=== PATIENT | female | born 1975 | race African-American/Black ===

== ENCOUNTER 2017-06-05 17:19 | Observation (INO) | payer SELFPAY ==
[~2017-06-05] VITALS: Ht 172.7 cm; Wt 109.0 kg
[~2017-06-05 17:19] MED LIST: ASPI81TA81; CORE25TA PO; FERR325T PO; HYDR-3533 PO; LISI10TA3 PO; POTA-243 PO; TORS20TA PO
[2017-06-05 17:35] VITALS: BP 121/76; PULSE 81; PULSE 88; RESP 20; TEMP 98; O2SAT 100
--- NOTE | 2017-06-05 18:11 | PD ---
HPI Chief Complaint: General Weakness Time Seen by Provider: 18:10 Travel History International Travel<30 days: No Contact w/Intl Traveler<30days: No Traveled to known affect area: No History of Present Illness HPI 42-year-old female presents to the emergency department via EMS for evaluation of epigastric and left-sided chest pain that started just prior to arrival. She states that she was seen on Wednesday at [facility] after her defibrillator went off. She states is the first time it has never fired. Patient states that she was discharged on . She states that after discharge, this epigastric and left-sided chest pain started. She states this mainly occurs after she eats. Today, she ate and then went to [employer] to chart picker some medications and a few things. She states that walking a [employer], she felt lightheaded and dizzy. She states the epigastric and left-sided chest pain started. Patient currently rates the pain 8/10. She points history defibrillator/pacemaker, ejection fraction 10%, cardiomyopathy, congestive heart failure. Patient's lieutenant ballistics is Dr. David. [facility] Past Medical History Hx Anticoagulant Therapy: Yes Arthritis: No Asthma: Yes Autoimmune Disease: No Blood Disorders: No Anxiety: Yes Depression: No Heart Rhythm Problems: No Cancer: No Cardiac Catheterization: Yes Cardiomyopathy: Yes Cardiovascular Problems: Yes High Cholesterol: No Chemotherapy: No Chest Pain: Yes Congestive Heart Failure: Yes COPD: No Cerebrovascular Accident: No Coronary Artery Disease: Yes Diabetes: No Diminished Hearing: No Endocrine: No Gastrointestinal Disorders: Yes (HIATAL HERNIA) GERD: No Glaucoma: No Genitourinary: No Headaches: No Hepatitis: No Hiatal Hernia: No Hypertension: Yes Immune Disorder: No Kidney Stones: No Musculoskeletal: No Neurologic: No Psychiatric: No Reproductive: No Respiratory: Yes (HISTORY OF PE) Immunizations Current: Yes Migraines: No Myocardial Infarction: No Radiation Therapy: No Renal Failure: No Seizures: No Sickle Cell Disease: No Sleep Apnea: No Thyroid Disease: No Ulcer: No Tetanus Vaccination: Unknown Influenza Vaccination: Yes PNEUMOCCOCAL Vaccine (Year): 2 ?: Not LMP: LAST MONTH : 2 Para: 1 Miscarriage: 1 : 0 Past Surgical History Abdominal Surgery: Yes (EXPLORATORY LAPAROSCOPY) AICD: Yes (BIOTRONIC) Appendectomy: No Arteriovenous Shunt: No Cardiac Surgery: Yes Cholecystectomy: No Coronary Artery Bypass Graft: No Ear Surgery: No Endocrine Surgery: No Eye Surgery: No Genitourinary Surgery: No Gynecologic Surgery: No Insulin Pump: No Joint Replacement: No Oral Surgery: No Pacemaker: Yes Thoracic Surgery: No Other Surgery: No Social History Alcohol Use: No Tobacco Use: No Substance Use: No Allergies-Medications (Allergen,Severity, Reaction): Coded Allergies: Sulfa (Verified Allergy, Severe, SHORTNESS OF BREATH, 06/05/17) Reported Meds & Prescriptions Reported Meds & Active Scripts Active Lortab (Hydrocodone-Acetaminophen) 5-325 Mg Tab 1 Tab PO Q6H PRN Reported Torsemide 20 Mg Tab 20 Mg PO BID Lisinopril 10 Mg Tab 10 Mg PO DAILY Klor-Con 10 (Potassium Chloride) 10 Meq Tab 10 Meq PO BID Coreg (Carvedilol) 25 Mg Tab 25 Mg PO BID Aspir-81 (Aspirin) 81 Mg Tabdr Review of Systems Except as stated in HPI: all other systems reviewed are Neg Physical Exam Narrative GENERAL: Well-nourished, well-developed female patient, afebrile. SKIN: Focused skin assessment warm/dry. HEAD: Normocephalic. Atraumatic. EYES: No scleral icterus. No injection or drainage. NECK: Supple, trachea midline. No JVD or lymphadenopathy. CARDIOVASCULAR: Regular rate and rhythm without murmurs, gallops, or rubs. RESPIRATORY: Breath sounds equal bilaterally. No accessory muscle use. Lungs sounds are clear to auscultation. GASTROINTESTINAL: Abdomen soft and nondistended. Patient has epigastric and right upper quadrant tenderness to palpation. MUSCULOSKELETAL: No cyanosis, or edema. BACK: Nontender without obvious deformity. No CVA tenderness. Data Data Last Documented VS Vital Signs Date Time Temp Pulse Resp B/P Pulse Ox O2 Delivery O2 Flow Rate FiO2 06/05/17 19:55 74 18 123/85 99 Room Air 06/05/17 18:11 2 06/05/17 17:35 98.0 Orders Electrocardiogram (06/05/17 ) B-Type Natriuretic Peptide (06/05/17 18:04) Ckmb (Isoenzyme) Profile (06/05/17 18:04) Complete Blood Count With Diff (06/05/17 18:04) Comprehensive Metabolic Panel (06/05/17 18:04) Magnesium (Mg) (06/05/17 18:04) Prothrombin Time / Inr (Pt) (06/05/17 18:04) Act Partial Throm Time (Ptt) (06/05/17 18:04) Troponin I (06/05/17 18:04) Lipase (06/05/17 18:04) Chest, Single Ap (06/05/17 18:04) Ecg Monitoring (06/05/17 18:04) Bilateral Bp Monitoring (06/05/17 18:04) Iv Access Insert/Monitor (06/05/17 18:04) Oximetry (06/05/17 18:04) Oxygen Administration (06/05/17 18:04) Aspirin Chew (Aspirin Chew) (06/05/17 18:15) Sodium Chloride 0.9% Flush (Ns Flush) (06/05/17 18:15) Us Abdomen Gallbladder (06/05/17 ) Ondansetron Inj (Zofran Inj) (06/05/17 18:15) Admit Order (Ed Use Only) (06/05/17 20:31) Labs Laboratory Tests Test 06/05/17 17:50 White Blood Count 5.8 TH/MM3 Red Blood Count 3.76 MIL/MM3 Hemoglobin 9.1 GM/DL Hematocrit 28.4 % Mean Corpuscular Volume 75.6 FL Mean Corpuscular Hemoglobin 24.2 PG Mean Corpuscular Hemoglobin 32.0 % Concent Red Cell Distribution Width 16.0 % Platelet Count 252 TH/MM3 Mean Platelet Volume 8.6 FL Neutrophils (%) (Auto) 55.3 % Lymphocytes (%) (Auto) 32.5 % Monocytes (%) (Auto) 8.9 % Eosinophils (%) (Auto) 1.9 % Basophils (%) (Auto) 1.4 % Neutrophils # (Auto) 3.2 TH/MM3 Lymphocytes # (Auto) 1.9 TH/MM3 Monocytes # (Auto) 0.5 TH/MM3 Eosinophils # (Auto) 0.1 TH/MM3 Basophils # (Auto) 0.1 TH/MM3 CBC Comment DIFF FINAL Differential Comment Prothrombin Time 11.4 SEC Prothromb Time International 1.0 RATIO Ratio Activated Partial 24.7 SEC Thromboplast Time Sodium Level 135 MEQ/L Potassium Level 3.9 MEQ/L Chloride Level 102 MEQ/L Carbon Dioxide Level 27.9 MEQ/L Anion Gap 5 MEQ/L Blood Urea Nitrogen 12 MG/DL Creatinine 0.84 MG/DL Estimat Glomerular Filtration 89 ML/MIN Rate Random Glucose 86 MG/DL Calcium Level 9.1 MG/DL Magnesium Level 2.1 MG/DL Total Bilirubin 0.5 MG/DL Aspartate Amino Transf 16 U/L (AST/SGOT) Alanine Aminotransferase 20 U/L (ALT/SGPT) Alkaline Phosphatase 82 U/L Total Creatine Kinase 99 U/L Troponin I LESS THAN 0.02 NG/ML B-Type Natriuretic Peptide 557 PG/ML Total Protein 7.3 GM/DL Albumin 3.3 GM/DL Lipase 216 U/L MDM Medical Decision Making Medical Screen Exam Complete: Yes Emergency Medical Condition: Yes Medical Record Reviewed: Yes Interpretation(s) Last Impressions Chest X-Ray 06/05/17 1804 Signed Impressions: Service Date/Time: Wednesday, June 05, 2017 18:07 - CONCLUSION: Stable chest. Cardiomegaly. Tobias Medina MD Gall Bladder Ultrasound 06/05/17 0000 Signed Impressions: Service Date/Time: Wednesday, June 05, 2017 18:28 - CONCLUSION: 1. Gallbladder wall thickening without cholelithiasis. 2. Enlarged liver. Tobias Medina MD Differential Diagnosis ACS versus CHF exacerbation versus pancreatitis versus cholecystitis Narrative Course 42-year-old female presents to the emergency department for evaluation of epigastric, left chest pain that has been occurring after eating since when she was discharged for [facility] after her defibrillator went off. EKG shows sinus rhythm, interventricular conduction delay, Heart rate 83. CBC, CMP, lipase, magnesium, CK, troponin, PTT, PTT/INR chest x-ray, ultrasound of right upper quadrant ordered and pending. Patient is given aspirin 162 mg by mouth, Zofran 4 mg IV. CBC shows hemoglobin 9.1, had atraumatic 28.4. CMP shows no acute abnormality. Lipase is 216. Magnesium is 2.1. CK is 99. Troponin is less than 0.02. BNP is 557. Coags are unremarkable. Chest x-ray shows stable chest, cardiomegaly. RUQ US shows gallbladder wall thickening without cholelithiasis; enlarged liver. I discussed the case with my attending physician, Dr. Huff. She recommends 23 hour observation. I spoke to Dr. Kumari, who would like the defibrillator to be interrogated. I spoke with Hermann from [employer], who offered to come in tonight or tomorrow morning for interrogation. Per Dr. Kumari, he can come in the morning for interrogation. Diagnosis Primary Impression: Chest pain, atypical Additional Impression: Abdominal pain Qualified Code: R10.13 - Epigastric pain Admitting Information Admitting Physician Requests: Observation Steph Leon Jun 05, 2017 18:10
[2017-06-05] MEDS ORDERED: SODIUM CHLORIDE 0.9% FLUSH 10 ML FLUSH IVF PRN (18:15)
[2017-06-05] MEDS ORDERED: ONDANSETRON HCL 4 MG/2 ML VIAL IV PUSH ONE (18:15)
[2017-06-05] MEDS ORDERED: ASPIRIN 81 MG CHEW TAB PO ONE (18:15)
--- NOTE | 2017-06-05 18:36 | RADRPT ---
EXAM DATE/TIME: 06/05/2017 18:07 [facility] COMPARISON: CHEST SINGLE AP, November 07, 2016, 2:37. INDICATIONS : Chest pain. MEDICAL HISTORY : Congestive hearrt failure. Hernia, hiatal. Cardiovascular diseasePulmonary embolism SURGICAL HISTORY : Pacemaker. Exploratory laparotomy. ENCOUNTER: Initial ACUITY: 1 day PAIN SCORE: 8/10 LOCATION: Bilateral chest FINDINGS: A single view of the chest demonstrates the lungs to be symmetrically aerated without evidence of mas s, infiltrate or effusion. Cardiomegaly left-sided pacemaker with single intact lead. The cardiomedi astinal contours are unremarkable. Osseous structures are intact. CONCLUSION: Stable chest. Cardiomegaly. Tobias Medina MD on June 05, 2017 at 18:33 Board Certified Radiologist. This report was verified electronically.
[2017-06-05 18:51] LABS: AUTOMATED NEUTROPHIL # 3.2 TH/MM3 (1.8-7.7); BASOPHIL # 0.1 TH/MM3 (0-0.2); BASOPHIL % 1.4 % (0.0-2.0); EOSINOPHIL # 0.1 TH/MM3 (0-0.4); EOSINOPHIL % 1.9 % (0.0-4.0); HEMATOCRIT 28.4 % (35.0-46.0); HEMO FLAGS DIFF FINAL; LYMPH % 32.5 % (9.0-44.0); LYMPHOCYTE # 1.9 TH/MM3 (1.0-4.8); MEAN CELL VOLUME 75.6 FL (80.0-100.0); MEAN CORPUSCULAR HEMOGLOBIN 24.2 PG (27.0-34.0); MONO % 8.9 % (0.0-8.0); NEUT % 55.3 % (16.0-70.0); PLATELET COUNT 252 TH/MM3 (150-450); RED BLOOD COUNT 3.76 MIL/MM3 (4.00-5.30); WHITE BLOOD COUNT 5.8 TH/MM3 (4.0-11.0)
--- NOTE | 2017-06-05 18:56 | RADRPT ---
EXAM DATE/TIME: 06/05/2017 18:28 [facility] COMPARISON: No previous studies available for comparison. INDICATIONS : Right upper quadrant pain. MEDICAL HISTORY : Congestive heart failure. Hypertension. Cardiomyopathy. Coronary artery disease. Anticoagulant ther apy. Chest pain. Pulmonary embolism. Asthma. Hiatal hernia. SURGICAL HISTORY : Cardiac catheterization. Pacemaker. Internal defibrillator. Exploratory laparoscopy. ENCOUNTER: Initial ACUITY: 2 days PAIN SCORE: 7/10 LOCATION: Right upper quadrant MEASUREMENTS: LIVER: 23.8 cm length COMMON DUCT: 3 mm RIGHT KIDNEY: 12.1 x 5.4 x 4.1 cm FINDINGS: LIVER: Normal echotexture without focal lesion or ductal dilatation. Hepatopedal flow. COMMON DUCT: No intraluminal mass or stone visualized. GALLBLADDER: Contains no stones, demonstrates wall thickening at 7 mm without pericholecystic fluid. PANCREAS: The visualized portions are within normal limits. RIGHT KIDNEY: No evidence of hydronephrosis, stone, or mass. CONCLUSION: 1. Gallbladder wall thickening without cholelithiasis. 2. Enlarged liver. Tobias Medina MD on June 05, 2017 at 18:53 Board Certified Radiologist. This report was verified electronically.
[2017-06-05 19:05] LABS: APTT (PATIENT) 24.7 SEC (24.3-30.1); PROTHROMBIN TIME - PATIENT 11.4 SEC (9.8-11.6)
[2017-06-05 19:27] LABS: ANION GAP 5 MEQ/L (5-15); AST (GOT) 16 U/L (15-37); BICARBONATE 27.9 MEQ/L (21.0-32.0); BLOOD UREA NITROGEN 12 MG/DL (7-18); CHLORIDE 102 MEQ/L (98-107); GLOMERULAR FILTRATION RATE 89 ML/MIN (>89); MAGNESIUM 2.1 MG/DL (1.5-2.5); POTASSIUM 3.9 MEQ/L (3.5-5.1); SODIUM (NA) 135 MEQ/L (136-145)
[2017-06-05 19:28] LABS: ALT (GPT) 20 U/L (10-53)
[2017-06-05 19:32] LABS: ALKALINE PHOSPHATASE 82 U/L (45-117); TOTAL BILIRUBIN ADULT 0.5 MG/DL (0.2-1.0)
[2017-06-05 19:33] LABS: CREATINE KINASE 99 U/L (26-192)
[2017-06-05 19:55] VITALS: BP 123/85; PULSE 74; RESP 18; O2SAT 99
[2017-06-05] MEDS ORDERED: LACTULOSE SYRUP 20 GM/30 ML CUP PO PRN (20:30)
[2017-06-05] MEDS ORDERED: ACETAMINOPHEN/HYDROcodone 325 MG/5 MG TAB PO PRN (20:30)
[2017-06-05] MEDS ORDERED: BISACODYL 10 MG SUPP RECTAL PRN (20:30)
[2017-06-05] MEDS ORDERED: SODIUM CHLORIDE 0.9% FLUSH 10 ML FLUSH IV FLUSH PRN (20:30)
[2017-06-05] MEDS ORDERED: ACETAMINOPHEN 325 MG TAB PO PRN (20:30)
[2017-06-05] MEDS ORDERED: MAGNESIUM HYDROXIDE SUSP 30 ML CUP PO PRN (20:30)
[2017-06-05] MEDS ORDERED: ONDANSETRON HCL 4 MG/2 ML VIAL IVP PRN (20:30)
[2017-06-05] MEDS ORDERED: NITROGLYCERIN 2% OINT 1 GM PACKET TOPICAL PRN (20:30)
[2017-06-05] MEDS ORDERED: SENNOSIDES 8.6 MG TAB PO PRN (20:30)
[2017-06-05] MEDS ORDERED: MORPHINE SULFATE 4 MG/ML INJ IV PRN (20:30)
--- NOTE | 2017-06-05 20:34 | HHI.HP ---
[facility] Primary Care Physician Admission Diagnosis chest pain, abdominal pain Diagnoses: (1) Chest pain Diagnosis: Principal (2) CHF (congestive heart failure) Diagnosis: Principal (3) Thickening of wall of gallbladder Diagnosis: Principal Travel History International Travel<30 Days: No Contact w/Intl Traveler <30 Da: No Traveled to Known Affected Are: No History of Present Illness This is a 42-year-old female with a PMH of HTN, Nonischemic Cardiomyopathy ( Echo08/28/16 w/ EF 15%), s/p AICD ([employer] 2015) and Anxiety who presented to the ER w/ complaints of chest pain starting earlier today. States she's had chest/epigastric pain after eating w/ associated nausea, no vomiting. Recent admit to [facility] for similar symptoms, states she had something to eat, felt sharp chest/epigastric pain and had subsequent AICD firing. Admitted 05/31- 06/02/17, s/p AICD Interrogation and found to have 5 episodes of SVT, dc'd home w / instructions to follow up w/ her Cnc Operator Programmer, Dr. David, has upcoming appt on Wednesday. Today w/ similar symptoms however no AICD firing. On arrival , BP 121/76, HR 81, O2 sat 100% on RA, Afebrile. CBC chemistry unremarkable. Troponin negative. BNP 557. INR 1.0. CXR with no acute findings. Gallbladder US with wall thickening, no cholelithiasis, enlarged liver. Review of Systems Except as stated in HPI: all other systems reviewed are Neg ROS: 14 point review of systems otherwise negative. Past Family Social History Past Medical History PMH: HTN, Nonischemic Cardiomyopathy (Echo08/28/16 w/ EF 15%), s/p AICD ( [employer] 2015) and Anxiety Past Surgical History PAST SURGICAL HISTORY: AICD, Ex Lap Allergies: Coded Allergies: Sulfa (Verified Allergy, Severe, SHORTNESS OF BREATH, 06/05/17) Family History PAST FAMILY HISTORY: Reviewed. No h/o DM or CAD Social History PAST SOCIAL HISTORY: Negative for alcohol, tobacco or drugs. Physical Exam Vital Signs Vital Signs Date Time Temp Pulse Resp B/P Pulse Ox O2 Delivery O2 Flow Rate FiO2 06/05/17 19:55 74 18 123/85 99 Room Air 06/05/17 18:11 98 Nasal Cannula 2 06/05/17 17:46 100 Room Air 06/05/17 17:35 88 121/76 06/05/17 17:35 98.0 81 20 121/76 100 Room Air Physical Exam PE: GENERAL: Very pleasant middle-aged black female in no acute distress. HEENT: PERRLA, EOMI. No scleral icterus or conjunctival pallor. No lid lag or facial droop. CARDIOVASCULAR: Regular rate and rhythm. No obvious murmurs to auscultation. No chest tenderness to palpation. RESPIRATORY: No obvious rhonchi or wheezing. Clear to auscultation. Breath sounds equal bilaterally. GASTROINTESTINAL: Abdomen soft, epigastric/RUQ tenderness to palpation, nondistended. BS normal. MUSCULOSKELETAL: Extremities without clubbing, cyanosis, or edema. No obvious deformities. NEUROLOGICAL: Awake, alert and oriented x4. No focal neurologic deficits. Moving both upper and lower extremities spontaneously. Laboratory Laboratory Tests Test 06/05/17 17:50 White Blood Count 5.8 Red Blood Count 3.76 Hemoglobin 9.1 Hematocrit 28.4 Mean Corpuscular Volume 75.6 Mean Corpuscular Hemoglobin 24.2 Mean Corpuscular Hemoglobin 32.0 Concent Red Cell Distribution Width 16.0 Platelet Count 252 Mean Platelet Volume 8.6 Neutrophils (%) (Auto) 55.3 Lymphocytes (%) (Auto) 32.5 Monocytes (%) (Auto) 8.9 Eosinophils (%) (Auto) 1.9 Basophils (%) (Auto) 1.4 Neutrophils # (Auto) 3.2 Lymphocytes # (Auto) 1.9 Monocytes # (Auto) 0.5 Eosinophils # (Auto) 0.1 Basophils # (Auto) 0.1 CBC Comment DIFF FINAL Differential Comment Prothrombin Time 11.4 Prothromb Time International 1.0 Ratio Activated Partial 24.7 Thromboplast Time Sodium Level 135 Potassium Level 3.9 Chloride Level 102 Carbon Dioxide Level 27.9 Anion Gap 5 Blood Urea Nitrogen 12 Creatinine 0.84 Estimat Glomerular Filtration 89 Rate Random Glucose 86 Calcium Level 9.1 Magnesium Level 2.1 Total Bilirubin 0.5 Aspartate Amino Transf 16 (AST/SGOT) Alanine Aminotransferase 20 (ALT/SGPT) Alkaline Phosphatase 82 Total Creatine Kinase 99 Troponin I LESS THAN 0.02 B-Type Natriuretic Peptide 557 Total Protein 7.3 Albumin 3.3 Lipase 216 Result Diagram: 06/05/17174906/05/171749 Assessment and Plan Problem List: (1) Chest pain ICD Code: R07.9 Status: Acute (2) Thickening of wall of gallbladder ICD Code: K82.8 Status: Acute (3) CHF (congestive heart failure) ICD Code: I50.9 Status: Acute Assessment and Plan A/P: 1. Chest Pain: c/o ongoing chest pain after eating, unlikely cardiac, however pt w/ extensive cardiac history. Initial trop 0.02, EKG w/ no acute changes. CXR w/ no acute findings. Currently chest pain free, notes symptoms only after meals. Protonix IV, analgesics/antiemetics, check serial cardiac enzymes, resume home medications. 2. Gallbladder Wall Thickening: likely early cholecystitis, c/o chest/ epigastric/RUQ pain following meals w/ associated nausea, no vomiting. Gallbladder US w/ gallbladder wall thickening, no cholelithiasis, images reviewed by me. Continue with analgesics/antiemetics. Consult Gen Sx for further eval, possible elective cholecystectomy. 3. CHF: Chronic. h/o Non-Ischemic CM, Echo 08/30/16 w/ EF 15%, s/p AICD ( [employer]), recent admit to [facility] after AICD firing, found to have 5 episodes of SVT. Follows w/ Dr. David as outpatient, upcoming appt on Wednesday, will consult for further recommendations. Interrogate AICD. Resume home medications. 4. DVT Prophylaxis: SCD/Teds. 5. Social work for d/c planning as needed. 6. Case discussed w/ ER physician at length. Anastacia Kumari MD Jun 05, 2017 20:34
[2017-06-05] MEDS: CARVEDILOL 12.5 MG TAB PO SCH (21:00)
[2017-06-05 22:21] VITALS: BP 115/68; PULSE 68; RESP 18; TEMP 98.4; O2SAT 100
[2017-06-05 22:34] VITALS: PULSE 73
[2017-06-05] MEDS: SODIUM CHLORIDE 0.9% FLUSH 10 ML FLUSH IV FLUSH SCH (22:49)
[2017-06-05] MEDS: SODIUM CHLOR 0.9% 1000 ML INJ 1,000 ML IV SCH (22:49)
[2017-06-05] MEDS: TORSEMIDE 20 MG TAB PO SCH (22:51)
[2017-06-05] MEDS: DOCUSATE SODIUM 50 MG/SENNA 8.6 MG TAB PO SCH (22:51)
[2017-06-05] MEDS: PANTOPRAZOLE SODIUM 40 MG VIAL IV PUSH SCH (22:51)
[2017-06-06] VITALS (8 sets, daily range): BP systolic 112–123; BP diastolic 60–78; PULSE 64–108; RESP 14–18; TEMP 97.5–98.4; O2SAT 96–100
[2017-06-06 05:28] LABS: AUTOMATED NEUTROPHIL # 3.1 TH/MM3 (1.8-7.7); BASOPHIL % 0.7 % (0.0-2.0); EOSINOPHIL # 0.1 TH/MM3 (0-0.4); EOSINOPHIL % 2.6 % (0.0-4.0); HEMATOCRIT 28.9 % (35.0-46.0); HEMO FLAGS DIFF FINAL; LYMPH % 32.1 % (9.0-44.0); LYMPHOCYTE # 1.8 TH/MM3 (1.0-4.8); MEAN CELL VOLUME 74.8 FL (80.0-100.0); MEAN CORPUSCULAR HEMOGLOBIN 23.7 PG (27.0-34.0); MEAN CORPUSCULAR HGB CONC 31.7 % (32.0-36.0); MONO % 10.7 % (0.0-8.0); NEUT % 53.9 % (16.0-70.0); PLATELET COUNT 239 TH/MM3 (150-450); RED BLOOD COUNT 3.86 MIL/MM3 (4.00-5.30); WHITE BLOOD COUNT 5.7 TH/MM3 (4.0-11.0)
[2017-06-06 05:53] LABS: ALT (GPT) 18 U/L (10-53); ANION GAP 8 MEQ/L (5-15); AST (GOT) 11 U/L (15-37); BICARBONATE 27.3 MEQ/L (21.0-32.0); BLOOD UREA NITROGEN 12 MG/DL (7-18); CHLORIDE 104 MEQ/L (98-107); GLOMERULAR FILTRATION RATE 81 ML/MIN (>89); POTASSIUM 3.7 MEQ/L (3.5-5.1); SODIUM (NA) 139 MEQ/L (136-145)
[2017-06-06 05:57] LABS: ALKALINE PHOSPHATASE 83 U/L (45-117); TOTAL BILIRUBIN ADULT 0.5 MG/DL (0.2-1.0)
[2017-06-06] MEDS: SODIUM CHLOR 0.9% 1000 ML INJ 1,000 ML IV SCH ×2 (06:29→08:48)
[2017-06-06] MEDS: TORSEMIDE 20 MG TAB PO SCH (08:46)
[2017-06-06] MEDS: CARVEDILOL 12.5 MG TAB PO SCH (08:46)
[2017-06-06] MEDS: PANTOPRAZOLE SODIUM 40 MG VIAL IV PUSH SCH (08:46)
[2017-06-06] MEDS: DOCUSATE SODIUM 50 MG/SENNA 8.6 MG TAB PO SCH (08:48)
[2017-06-06] MEDS: SODIUM CHLORIDE 0.9% FLUSH 10 ML FLUSH IV FLUSH SCH (08:48)
[2017-06-06] MEDS ORDERED: LISINOPRIL 10 MG TAB PO SCH (09:00)
[2017-06-06] MEDS ORDERED: ASPIRIN EC 81 MG TABEC PO SCH (09:00)
--- NOTE | 2017-06-06 09:02 | MB ---
cc: SHREE DOMINGO MD DATE OF CONSULTATION: 06/06/2017 REASON FOR CONSULTATION: Chest pain HISTORY OF PRESENT ILLNESS: Ms. Johnston is a 42 year-old patient of my partner, Dr. David. She has a history of nonischemic cardiomyopathy by catheterization in 2008. Her most recent echo showed an EF of 15%. The patient reports that she has not been compliant with her medications lately. In fact, when she had skipped her Coreg, she had an episode of SVT and got shocked. This admission she reports some episodes of epigastric pain after eating. This has continued since her visit at [facility] a week ago. PAST MEDICAL HISTORY: Significant for: 1. Hypertension. 2. Nonischemic cardiomyopathy. 3. Morbid obesity. 4. She is now diagnosed with SVT. ALLERGIES SULFA. OUTPATIENT MEDICATIONS: 1. Coreg 25 milligrams b.i.d. 2. Lisinopril 10 milligrams a day. 3. Torsemide 20 milligrams b.i.d. 4. Klor-Con 10 milliequivalents b.i.d. 5. Aspirin SOCIAL HISTORY: The patient does not drink or smoke. FAMILY HISTORY: Noncontributory. REVIEW OF SYSTEMS: Except as mentioned in the HPI, all 12 systems are negative. LABORATORY VALUES: Significant for: Serial troponins of less than 0.02. Her BNP is 557, creatinine is 0.91. Chest x-ray is stable, cardiomegaly. Gallbladder ultrasound does show wall thickening without cholelithiasis. ICD interrogation shows normal device function. IMPRESSION: 1. Abdominal pain/chest pain. The patient has a history of nonischemic cardiomyopathy with an EF of 15%. She is now having some discomfort with meals. I suspect this is related to digestive processes with her poor EF and anemia. She does not need any further ischemia workup. At this point I would simply try smaller meals and she restart her medications. Compliance and anemia contributing that also need to be addressed as out patient. 2. Nonischemic cardiomyopathy. The patient does have a longstanding history of this. In general she has been compliant, but reports that lately not so much. The importance of medication compliance was discussed. We did talk about the importance of this and that she may even need transplant. Obviously medication compliance becomes even more important. The patient should restart and continue on her medications as an outpatient. 3. Noncompliance, as above. 4, Anemia- chronic per pt, but no prior GI scope => pt instructed to get work up as out patient, she understands and agrees DISPOSITION: It is reasonable for the patient to be discharged and follow up with Dr. David this week. Shree Domingo M.D. ANGÉLICA/BUSHAR /8:49 AM /8:56 AM [facility]
--- NOTE | 2017-06-06 12:02 | HHI.PR ---
Subjective Remarks Follow up for atypical chest pains, epigastric/RUQ pains, GB wall thickening. The patient reports feeling much better today. She was able to tolerate her breakfast without difficulty. No recurrent epigastric pains/nausea/vomiting. Bowel movements have been normal. Denies fever/chills. She endorses pain is usually worse after meals, especially after having [employer]. Discussed possible cholecystectomy, patient believes she would like to hold off at this time but does want to discuss with surgical team. She states she will have insurance after June 15. If cleared by surgery, she would like to go home today. Objective Vitals Vital Signs Date Time Temp Pulse Resp B/P Pulse Ox O2 Delivery O2 Flow Rate FiO2 06/06/17 11:13 97.9 64 15 112/60 98 06/06/17 08:35 108 06/06/17 07:16 97.5 65 15 118/78 96 06/06/17 05:58 98.4 77 18 123/74 97 06/06/17 04:22 73 06/06/17 00:06 70 06/05/17 22:34 73 06/05/17 22:21 98.4 68 18 115/68 100 06/05/17 19:55 74 18 123/85 99 Room Air 06/05/17 18:11 98 Nasal Cannula 2 06/05/17 17:46 100 Room Air 06/05/17 17:35 88 121/76 06/05/17 17:35 98.0 81 20 121/76 100 Room Air I/O 06/05/17 06/05/17 06/05/17 06/06/17 06/06/17 06/06/17 07:00 15:00 23:00 07:00 15:00 23:00 Intake Total 505 ml Balance 505 ml Intake Oral 150 ml IV Total 355 ml # Voids 4 Result Diagram: 06/06/17 0407 06/06/17 0407 Imaging Last Impressions Chest X-Ray 06/05/17 1804 Signed Impressions: Service Date/Time: Monday, June 05, 2017 18:07 - CONCLUSION: Stable chest. Cardiomegaly. Tobias Medina MD Gall Bladder Ultrasound 06/05/17 0000 Signed Impressions: Service Date/Time: Monday, June 05, 2017 18:28 - CONCLUSION: 1. Gallbladder wall thickening without cholelithiasis. 2. Enlarged liver. Tobias Medina MD Objective Remarks GENERAL: Well-nourished, well-developed pleasant obese AA female patient in NAD. SKIN: Warm and dry. No rash. HEENT: Normocephalic. Atraumatic.Pupils equal and round. Mucous membranes pink and moist. NECK: Supple. Trachea midline. CARDIOVASCULAR: Regular rate and rhythm. S1, S2 noted. No murmur appreciated. RESPIRATORY: No accessory muscle use. Clear to auscultation. Breath sounds equal bilaterally. GASTROINTESTINAL: Abdomen soft, non-tender, nondistended. Normoactive bowel sounds x4. MUSCULOSKELETAL: No obvious deformities. Extremities without clubbing, cyanosis , or edema. NEUROLOGICAL: Awake and alert. No obvious cranial nerve deficits. Motor grossly within normal limits. Normal speech. PSYCHIATRIC: Appropriate mood and affect; insight and judgment normal. Medications and IVs Current Medications Medications (Trade) Dose Ordered Sig/Brielle Route Start Time Stop Time Status Last Admin Aspirin 81 mg 81 mg DAILY PO 06/06/17 09:00 06/06/17 08:46 (NS 1000 ml Inj) 1,000 ml @ 100 mls/hr Q10H IV 06/05/17 20:29 06/06/17 06:29 (NS Flush) 2 ml UNSCH PRN IV FLUSH 06/05/17 20:30 (NS Flush) 2 ml BID IV FLUSH 06/05/17 21:00 06/06/17 08:48 (Zofran Inj) 4 mg Q6H PRN IVP 06/05/17 20:30 (Tylenol) 650 mg Q6H PRN PO 06/05/17 20:30 ([place] 5-325 Mg) 1 tab Q4H PRN PO 06/05/17 20:30 (Morphine Inj) 2 mg Q3H PRN IV 06/05/17 20:30 (Amy-Colace) 1 tab BID PO 06/05/17 21:00 06/05/17 22:51 (Milk Of Magnesia Liq) 30 ml Q12H PRN PO 06/05/17 20:30 (Senokot) 17.2 mg Q12H PRN PO 06/05/17 20:30 (Dulcolax Supp) 10 mg DAILY PRN RECTAL 06/05/17 20:30 (Lactulose Liq) 30 ml DAILY PRN PO 06/05/17 20:30 (Nitroglycerin 2% Oint) 0.5 inch Q6HR PRN TOPICAL 06/05/17 20:30 (Coreg) 25 mg BID PO 06/05/17 21:00 06/06/17 08:46 (Prinivil) 10 mg DAILY PO 06/06/17 09:00 06/06/17 08:46 (Demadex) 20 mg BID PO 06/05/17 21:00 06/06/17 08:46 (Protonix Inj) 40 mg Q12H IV PUSH 06/05/17 22:00 06/06/17 08:46 A/P Problem List: (1) Chest pain ICD Code: R07.9 Status: Acute (2) Thickening of wall of gallbladder ICD Code: K82.8 Status: Acute (3) CHF (congestive heart failure) ICD Code: I50.9 Status: Acute Assessment and Plan 42-year-old female with a PMH of HTN, Nonischemic Cardiomyopathy (Echo08/28/16 w / EF 15%), s/p AICD ([employer] 2015) and Anxiety who presented to the ER w/ complaints of chest pain/epigastric pain/nausea, worse after meals. Atypical Chest Pain: c/o ongoing chest pain after eating, unlikely cardiac, however pt w/ extensive cardiac history. ACS ruled out with negative serial cardiac enzymes x3, EKG with no acute ischemic changes. CXR w/ no acute findings. Currently chest pain free, notes symptoms only after meals. Given Protonix IV, analgesics/antiemetics. Consulted cardiology, cleared for discharge. Gallbladder Wall Thickening: suspected early cholecystitis, c/o chest/epigastric /RUQ pain following meals w/ associated nausea, no vomiting. Gallbladder US w/ GB wall thickening, no cholelithiasis. Continue with analgesics/antiemetics. Consult Gen Sx for further eval, possible elective cholecystectomy either in hospital or as outpatient. Symptoms improved, able to tolerate breakfast this morning. CHF: Chronic. h/o Non-Ischemic CM, Echo 08/30/16 w/ EF 15%, s/p AICD ( [employer]), recent admit to [facility] after AICD firing, found to have 5 episodes of SVT. Follows w/ Dr. David as outpatient, upcoming appt on Wednesday, consulted cardiology, cleared for discharge, continue outpatient f/up. Resume home meds. DVT Prophylaxis: SCD/Teds. Discharge Planning 1200hrs: Await general surgery recommendations. Possible discharge today if cleared by GS. 1800hrs: Patient was seen by general surgery, discussed outpatient elective cholecystectomy, patient was provided Dr. Hardy's information to f/up. The patient is happy with this plan and wants to go home. She was discharged. Discharge patient to home Condition on discharge: Improved Heart Healthy/Low Fat Diet as tolerated Ad Jane activity Rx written: no new meds Follow-up with primary care physician, cardiology Dr. David, and general surgery Dr. Hardy Attending Statement The exam, history, and the medical decision-making described in the above note were completed with the assistance of the mid-level provider. I reviewed and agree with the findings presented. I attest that I had a [id number] encounter with the patient on the same day, and personally performed and documented my assessment and findings in the medical record. Recommended for discharge by security incident response specialist. Malika Menjivar PA-C Jun 06, 2017 12:02 pm Kayden Guevara MD Jun 06, 2017 5:54 pm
--- NOTE | 2017-06-06 14:26 | HHI.DCPOC ---
Discharge Care Plan Diagnosis: (1) Thickening of wall of gallbladder (2) Chest pain, atypical (3) Non-ischemic cardiomyopathy (4) Hypertension Goals to Promote Your Health * To prevent worsening of your condition and complications * To maintain your health at the optimal level Directions to Meet Your Goals Take your medications as prescribed Follow your dietary instruction Follow activity as directed Keep your appointments as scheduled Take your immunizations and boosters as scheduled If your symptoms worsen call your PCP, if no PCP go to Urgent Care Center or Emergency Room Smoking is Dangerous to Your Health. Avoid second hand smoke Call the 24-hour hour crisis hotline for domestic abuse at Malika Menjivar PA-C Jun 06, 2017 14:26
--- NOTE | 2017-06-06 18:46 | MB ---
cc: TANGELA DAVID MD, JOSEPH D. M.D. DATE OF CONSULTATION: 06/06/2017. REASON FOR CONSULTATION: Questionable biliary colic. HISTORY OF PRESENT ILLNESS: This is a pleasant 42-year-old female who came into the emergency room after experiencing some right upper quadrant discomfort with nausea and vomiting and bloating. Imaging was done which showed a thickened gallbladder, no stones. CT scan was done as well. Surgery was consulted for evaluation. She has a history of severe congestive heart failure. She has an ejection fraction, was I was told, of 15%. She is followed by Dr. David. Recently this week apparently her defibrillator went off and she was shocked. She had gone over to the other hospital where all her cardiac workup was apparently okay but then she came over to [place] for further evaluation. Surgery was consulted for evaluation. PAST MEDICAL HISTORY: Her past medical history is significant for: 1. Severe heart disease as above. 2. On reviewing the records in [facility], unfortunately all the notes are unavailable for some computer mix-up and will not let me open up Dr. Youssef's notes, Dr. David's notes, ___ Echocardiogram, Dr. Arenas's consultation. All notes are unavailable in the computer system at present and so all this comes from the patient. 3. The patient tells me she has severe heart disease. 4. She does have a defibrillator in place. MEDICATIONS: Her medications include: 1. Aspirin. 2. Coreg. 3. Lortab at times. 4. Lisinopril. 5. Potassium. 6. Torsemide. ALLERGIES: SHE IS ALLERGIC TO SULFA. PHYSICAL EXAMINATION: GENERAL: She is a slightly obese -[place] female very pleasant and does not appear to be in distress. NECK: The neck is supple. CHEST: She has a pacer on the left side. HEART: Regular rate. ABDOMEN: Obese, soft, mild soreness right upper quadrant. No Moulton's. EXTREMITIES: Moves all extremities well. No cyanosis, clubbing or edema. NEUROLOGIC: She is alert and oriented. LABORATORY DATA: White count is 5, hemoglobin 9 and hematocrit of 27. LFTs are normal. Chemistries normal. Her BNP was 557. IMAGING STUDIES: Ultrasound shows what appears to be acalculous cholecystitis. CT shows the same. ASSESSMENT: Aviva 42-year-old female with severe heart disease recently defibrillated. She sees Dr. David on a regular basis. Will need to get more information on her cardiac status. She states that since she came into the hospital in the emergency room she has been feeling a lot better and would like to be discharged and Dr. Arenas saw her and apparently okayed her discharge as well. PLAN: I have given her my card and I told to call the office and will get cardiac clearance from her christmas bell ringer and proceed on an elective basis with a cholecystectomy at her convenience once we get more of her cardiac status. She is very happy with this and will call the office first thing next week to schedule a follow-up visit in my office. MD MORGAN Carey/OMAR /6:05 PM /6:33 PM
--- NOTE | 2017-06-07 09:26 | EKG ---
Date Performed: 06/05/2017 Time Performed: 18:00:04 PTAGE: 42 years EKG: Normal Sinus rhythm with left bundle branch block Left bundle branch block is new since previous tracing. ABNORMAL ECG PREVIOUS TRACING : 11/07/2016 02.17 DOCTOR: Tree Youssef Interpretating Date/Time 06/07/2017 09:24:37
== END 2017-06-06 17:44 | disposition home or self-care (01) ==
LOC: NEPC 17:19 → NEDA 20:32 → NEPFCDU 21:40
PROVIDERS: ADMIT Internal Medicine; ATTEND Internal Medicine
DX: R07.89 Other chest pain (principal); I45.9 Conduction disorder, unspecified; R10.11 Right upper quadrant pain; R16.0 Hepatomegaly, not elsewhere classified; R42 Dizziness and giddiness; R53.1 Weakness; R94.31 Abnormal electrocardiogram [ECG] [EKG]; R10.13 Epigastric pain; I44.7 Left bundle-branch block, unspecified; D64.9 Anemia, unspecified; R11.2 Nausea with vomiting, unspecified; K82.8 Other specified diseases of gallbladder; I25.10 Atherosclerotic heart disease of native coronary artery without angina pectoris; J45.909 Unspecified asthma, uncomplicated; I11.0 Hypertensive heart disease with heart failure; I50.9 Heart failure, unspecified; I42.9 Cardiomyopathy, unspecified; F41.9 Anxiety disorder, unspecified; E66.9 Obesity, unspecified; Z95.810 Presence of automatic (implantable) cardiac defibrillator; Z79.899 Other long term (current) drug therapy; Z79.82 Long term (current) use of aspirin; Z91.14 Patient's other noncompliance with medication regimen; Z86.711 Personal history of pulmonary embolism
CPT/HCPCS: 71010; 76705; 80053; 82550; 83690; 83735; 83880; 84484; 85025; 85610; 85730; 93005; 96374; 99285; C9113; G0378; J2405; J7030

== ENCOUNTER 2017-09-15 12:40 | Emergency (ER) | payer SELFPAY ==
[~2017-09-15] VITALS: Ht 172.7 cm; Wt 118.0 kg
[~2017-09-15 12:40] MED LIST changes: -FERR325T PO; +KLOR10TA PO; -POTA-243 PO
[2017-09-15 12:58] VITALS: BP 95/47; PULSE 72; RESP 16; TEMP 97.6; O2SAT 100
[2017-09-15 13:03] VITALS: BP 95/47; PULSE 73; RESP 16; O2SAT 100
[2017-09-15] MEDS ORDERED: SODIUM CHLORIDE 0.9% FLUSH 10 ML FLUSH IVF PRN (13:15)
[2017-09-15] MEDS ORDERED: SACU1TAB4 PO (13:15)
[2017-09-15 13:45] LABS: AUTOMATED NEUTROPHIL # 4.1 TH/MM3 (1.8-7.7); BASOPHIL # 0.1 TH/MM3 (0-0.2); EOSINOPHIL # 0.1 TH/MM3 (0-0.4); EOSINOPHIL % 2.1 % (0.0-4.0); HEMATOCRIT 28.4 % (35.0-46.0); LYMPH % 25.1 % (9.0-44.0); LYMPHOCYTE # 1.7 TH/MM3 (1.0-4.8); MEAN CELL VOLUME 77.7 FL (80.0-100.0); MEAN CORPUSCULAR HEMOGLOBIN 25.4 PG (27.0-34.0); MEAN CORPUSCULAR HGB CONC 32.6 % (32.0-36.0); MONO % 9.7 % (0.0-8.0); NEUT % 62.1 % (16.0-70.0); PLATELET COUNT 199 TH/MM3 (150-450); RED BLOOD COUNT 3.66 MIL/MM3 (4.00-5.30); RED CELL DISTRIBUTION WIDTH 20.3 % (11.6-17.2); WHITE BLOOD COUNT 6.7 TH/MM3 (4.0-11.0)
--- NOTE | 2017-09-15 13:46 | PD ---
HPI Chief Complaint: Chest Pain Time Seen by Provider: 12:53 Travel History International Travel<30 days: No Contact w/Intl Traveler<30days: No Traveled to known affect area: No History of Present Illness HPI So 42 year-old woman presents to the emergency department complaining of chest pain. She is a history of severe nonischemic cardiomyopathy with an EF 15%, as well as hypertension, PE, AICD, morbid obesity, and SVT. She states she started getting chest pain yesterday. She is a little bit of pain across her back. She thought the pain was related to eating pork that she's had similar pain in the past with important this is been more persistent. She also had some shortness of breath with it. She's been compliant with all of her medications. She does state that she's been taking double dose of her entresto and beta chandni once a day instead of spreading up the twice a day. She took that this morning. She states overall she had been doing well. She has appointment with Dr. Menendez tomorrow. History Past Medical History Narrative Medical Nonischemic cardiomyopathy, CHF, EF 15%, follows with Dr. Menendez Hypertension History of PE AICD Morbid obesity SVT resulting in shock from her AICD Influenza Vaccination: No PNEUMOCCOCAL Vaccine (Year): 2 LMP: MID-AUGUST 2017 : 2 Para: 1 Social History Alcohol Use: No Tobacco Use: No Allergies-Medications (Allergen,Severity, Reaction): Coded Allergies: Sulfa (Sulfonamide Antibiotics) (Unverified Allergy, Severe, SHORTNESS OF BREATH, 09/15/17) Reported Meds & Prescriptions Reported Meds & Active Scripts Active Reported Entresto (Sacubitril-Valsartan) 97-103 Mg Tab 1 Tab PO BID Torsemide 20 Mg Tab 20 Mg PO BID Klor-Con 10 (Potassium Chloride) 10 Meq Tab 10 Meq PO BID Coreg (Carvedilol) 25 Mg Tab 25 Mg PO BID Aspir-81 (Aspirin) 81 Mg Tabdr Review of Systems Except as stated in HPI: all other systems reviewed are Neg Physical Exam Narrative GENERAL: Well-appearing 42 year-old woman, obese, nontoxic. SKIN: Focused skin assessment warm/dry. HEAD: Atraumatic. Normocephalic. EYES: Pupils equal and round. No scleral icterus. No injection or drainage. ENT: No nasal bleeding or discharge. Mucous membranes pink and moist. NECK: Trachea midline. No JVD. CARDIOVASCULAR: Regular rate and rhythm. Prominent murmur in the anterior precordium. RESPIRATORY: No accessory muscle use. Clear to auscultation. Breath sounds equal bilaterally. GASTROINTESTINAL: Abdomen soft, non-tender, nondistended. Hepatic and splenic margins not palpable. MUSCULOSKELETAL: No obvious deformities. No significant edema. NEUROLOGICAL: Awake and alert. No obvious cranial nerve deficits. Motor grossly within normal limits. Normal speech. Data Data Last Documented VS Vital Signs Date Time Temp Pulse Resp B/P (MAP) Pulse Ox O2 Delivery O2 Flow Rate FiO2 09/15/17 17:01 72 16 102/59 (73) 99 Room Air 09/15/17 12:58 97.6 Orders Orders Electrocardiogram (09/15/17 13:01) Complete Blood Count With Diff (09/15/17 13:01) Comprehensive Metabolic Panel (09/15/17 13:01) Troponin I (09/15/17 13:01) Ecg Monitoring (09/15/17 13:01) Iv Access Insert/Monitor (09/15/17 13:01) Oximetry (09/15/17 13:01) Oxygen Administration (09/15/17 13:01) Sodium Chloride 0.9% Flush (Ns Flush) (09/15/17 13:15) Chest, Pa & Lat (09/15/17 13:01) Troponin I (09/15/17 15:06) Labs Laboratory Tests Test 09/15/17 13:26 09/15/17 16:38 White Blood Count 6.7 TH/MM3 Red Blood Count 3.66 MIL/MM3 Hemoglobin 9.3 GM/DL Hematocrit 28.4 % Mean Corpuscular Volume 77.7 FL Mean Corpuscular Hemoglobin 25.4 PG Mean Corpuscular Hemoglobin Concent 32.6 % Red Cell Distribution Width 20.3 % Platelet Count 199 TH/MM3 Mean Platelet Volume 8.5 FL Neutrophils (%) (Auto) 62.1 % Lymphocytes (%) (Auto) 25.1 % Monocytes (%) (Auto) 9.7 % Eosinophils (%) (Auto) 2.1 % Basophils (%) (Auto) 1.0 % Neutrophils # (Auto) 4.1 TH/MM3 Lymphocytes # (Auto) 1.7 TH/MM3 Monocytes # (Auto) 0.6 TH/MM3 Eosinophils # (Auto) 0.1 TH/MM3 Basophils # (Auto) 0.1 TH/MM3 CBC Comment AUTO DIFF Differential Comment AUTO DIFF CONFIRMED Blood Urea Nitrogen 25 MG/DL Creatinine 1.00 MG/DL Random Glucose 118 MG/DL Total Protein 7.9 GM/DL Albumin 3.1 GM/DL Calcium Level 9.0 MG/DL Alkaline Phosphatase 112 U/L Aspartate Amino Transf (AST/SGOT) 15 U/L Alanine Aminotransferase (ALT/SGPT) 15 U/L Total Bilirubin 0.3 MG/DL Sodium Level 136 MEQ/L Potassium Level 3.3 MEQ/L Chloride Level 102 MEQ/L Carbon Dioxide Level 27.1 MEQ/L Anion Gap 7 MEQ/L Estimat Glomerular Filtration Rate 73 ML/MIN Troponin I LESS THAN 0.02 NG/ML LESS THAN 0.02 NG/ML MDM Medical Decision Making Medical Screen Exam Complete: Yes Emergency Medical Condition: Yes Interpretation(s) My review of EKG: Normal sinus rhythm at a rate of 67, normal axis, normal intervals, no definite evidence of acute ischemia, little bit of inferior T- wave flattening. LABS: CBC remarkable for mild anemia. CMP generally unremarkable. Troponin negative. 2 Differential Diagnosis ACS, nonischemic chest pain, heart failure, PE, other Narrative Course Medical decision making This is a chronically ill 42 year-old woman presents emergent from with chest pain. She has nonischemic cardiomyopathy with a poor EF. Multiple admissions for chest pain and abdominal pain in the past. She looks overall well. She states she gets similar chest pains of this in the past. She's been compliant with her medications. She is appointment with cardiology tomorrow. At this point we'll check x-ray, labs, EKG. We'll check a three-hour delta troponin. These look okay to me think she would be a candidate for outpatient follow-up. Diagnosis Primary Impression: Chest pain Additional Instructions: Follow-up with her therapist asst tomorrow. Return to the emergency department for any new or worsening symptoms. Med/Other Pt SpecificInfo: No Change to Meds Disposition: 01 DISCHARGE HOME Condition: Stable Arthur Purcell MD Sep 15, 2017 13:45
[2017-09-15 13:48] LABS: HEMO FLAGS AUTO DIFF
[2017-09-15 14:07] LABS: ALT (GPT) 15 U/L (10-53); ANION GAP 7 MEQ/L (5-15); AST (GOT) 15 U/L (15-37); BICARBONATE 27.1 MEQ/L (21.0-32.0); BLOOD UREA NITROGEN 25 MG/DL (7-18); CHLORIDE 102 MEQ/L (98-107); GLOMERULAR FILTRATION RATE 73 ML/MIN (>89); POTASSIUM 3.3 MEQ/L (3.5-5.1); SODIUM (NA) 136 MEQ/L (136-145)
[2017-09-15 14:11] LABS: ALKALINE PHOSPHATASE 112 U/L (45-117); TOTAL BILIRUBIN ADULT 0.3 MG/DL (0.2-1.0)
[2017-09-15 14:33] LABS: SCAN/DIFF AUTO DIFF CONFIRMED
--- NOTE | 2017-09-15 14:47 | RADRPT ---
EXAM DATE/TIME: 09/15/2017 13:50 [facility] COMPARISON: CHEST PA & LAT, May 06, 2016, 15:20. INDICATIONS : Chest pain and low blood pressure. MEDICAL HISTORY : Congestive heart failure. Hypertension. Cardiomyopathy. Coronary artery disease. Pulmonary embolism. Asthma. Hiatal hernia. SURGICAL HISTORY : Cardiac catheterization. Pacemaker. Internal defibrillator. ENCOUNTER: Initial ACUITY: 1 day PAIN SCORE: 5/10 LOCATION: Bilateral chest FINDINGS: The heart is enlarged. The pulmonary vascular pattern is normal. The lungs are clear. Left subclav deborah AICD has its tip in the right ventricle. No pneumothorax is noted. CONCLUSION: 1. Cardiomegaly. 2. No acute focal pulmonary infiltrate or pulmonary vascular congestion. Luis Ny MD on September 15, 2017 at 14:30 Board Certified Radiologist. This report was verified electronically.
[2017-09-15 15:08] VITALS: BP 99/53; PULSE 73; RESP 16; O2SAT 100
[2017-09-15 17:01] VITALS: BP 102/59; PULSE 72; RESP 16; O2SAT 99
--- NOTE | 2017-09-16 14:28 | EKG ---
Date Performed: 09/15/2017 Time Performed: 13:03:49 PTAGE: 42 years EKG: Sinus rhythm POSSIBLE LEFT VENTRICULAR HYPERTROPHY NONSPECIFIC T-WAVE ABNORMALITY Previous Left bundle branch blo ck has resolved with persisting nonspecific ST-T wave changes Clinical correlation recommended ABNORM AL ECG PREVIOUS TRACING : 09/15/2017 13.03 DOCTOR: Tim Sanchez Interpretating Date/Time 09/16/2017 14:26:28
== END 2017-09-15 17:44 | disposition home or self-care (01) ==
LOC: NEPC 12:40
DX: R07.9 Chest pain, unspecified (principal); I42.9 Cardiomyopathy, unspecified; D64.9 Anemia, unspecified; I10 Essential (primary) hypertension; I47.1 Supraventricular tachycardia; E66.01 Morbid (severe) obesity due to excess calories; R94.31 Abnormal electrocardiogram [ECG] [EKG]; Z86.711 Personal history of pulmonary embolism; Z79.82 Long term (current) use of aspirin
CPT/HCPCS: 71020; 80053; 84484; 85025; 93005; 99285

== ENCOUNTER 2017-11-11 01:14 | Emergency (ER) | payer SELFPAY ==
[~2017-11-11] VITALS: Ht 172.7 cm; Wt 125.0 kg
[~2017-11-11 01:14] MED LIST changes: -HYDR-3533 PO; -LISI10TA3 PO; +SACU1TAB4 PO
[2017-11-11 01:15] VITALS: BP 173/81; PULSE 79; RESP 16; TEMP 97.9; O2SAT 99
[2017-11-11 01:55] VITALS: BP 143/75; PULSE 78; RESP 18; O2SAT 100
[2017-11-11 02:30] LABS: AUTOMATED NEUTROPHIL # 3.7 TH/MM3 (1.8-7.7); BASOPHIL # 0.1 TH/MM3 (0-0.2); BASOPHIL % 1.2 % (0.0-2.0); EOSINOPHIL # 0.2 TH/MM3 (0-0.4); EOSINOPHIL % 2.6 % (0.0-4.0); HEMATOCRIT 27.5 % (35.0-46.0); HEMOGLOBIN 8.7 GM/DL (11.6-15.3); LYMPH % 33.8 % (9.0-44.0); LYMPHOCYTE # 2.3 TH/MM3 (1.0-4.8); MEAN CELL VOLUME 78.1 FL (80.0-100.0); MEAN CORPUSCULAR HEMOGLOBIN 24.8 PG (27.0-34.0); MEAN CORPUSCULAR HGB CONC 31.8 % (32.0-36.0); MEAN PLATELET VOLUME 8.4 FL (7.0-11.0); MONO % 8.6 % (0.0-8.0); MONOCYTE # 0.6 TH/MM3 (0-0.9); NEUT % 53.8 % (16.0-70.0); PLATELET COUNT 299 TH/MM3 (150-450); RED BLOOD COUNT 3.52 MIL/MM3 (4.00-5.30); RED CELL DISTRIBUTION WIDTH 14.7 % (11.6-17.2); WHITE BLOOD COUNT 6.8 TH/MM3 (4.0-11.0)
[2017-11-11 02:40] LABS: BACTERIA, URINE RARE /hpf; BILIRUBIN, URINE NEG (NEG); BLOOD, URINE SMALL (NEG); GLUCOSE,URINE NEG (NEG); KETONE, URINE NEG (NEG); MUCUS URINE FEW /lpf (OCC); NITRITE,URINE NEG (NEG); PH, URINE 5.5 (5.0-8.5); SQUAMOUS EPITHELIAL CELL URINE 5 /hpf (0-5); TRICHOMONAS, URINE RARE; URINE COLOR YELLOW (YELLW/STRAW); URINE LEUKOCYTE ESTERASE LARGE (NEG)
[2017-11-11 02:54] LABS: ALBUMIN 3.3 GM/DL (3.4-5.0); ALT (GPT) 22 U/L (10-53); AST (GOT) 17 U/L (15-37); BICARBONATE 27.8 MEQ/L (21.0-32.0); BLOOD UREA NITROGEN 18 MG/DL (7-18); CALCIUM 9.3 MG/DL (8.5-10.1); CHLORIDE 107 MEQ/L (98-107); CREATININE 0.65 MG/DL (0.50-1.00); GLOMERULAR FILTRATION RATE 120 ML/MIN (>89); GLUCOSE,RANDOM 88 MG/DL (74-106); LIPASE 144 U/L (73-393); SODIUM (NA) 140 MEQ/L (136-145)
[2017-11-11 02:58] LABS: ALKALINE PHOSPHATASE 116 U/L (45-117); TOTAL BILIRUBIN ADULT LESS THAN 0.1 MG/DL (0.2-1.0); TOTAL PROTEIN 8.2 GM/DL (6.4-8.2); TROPONIN I LESS THAN 0.02 NG/ML (0.02-0.05)
--- NOTE | 2017-11-11 04:09 | RADRPT ---
EXAM DATE/TIME: 11/11/2017 03:52 [facility] COMPARISON: CHEST PA & LAT, September 15, 2017, 13:50. INDICATIONS : Left side chest pain. MEDICAL HISTORY : Congestive heart failure. Hypertension. Cardiomyopathy. Coronary artery disease. Pulmonary embolism. Asthma. Hiatal hernia. SURGICAL HISTORY : Defibrillator. Cardiac catheterization. Pacemaker. ENCOUNTER: Initial ACUITY: 2 days PAIN SCORE: 5/10 LOCATION: Left chest FINDINGS: Slight cardiomegaly has not changed. Lungs are clear. Left subclavian pacer has not changed. CONCLUSION: No appreciable change. Cortney Lerma MD on November 11, 2017 at 4:07 Board Certified Radiologist. This report was verified electronically.
--- NOTE | 2017-11-11 04:16 | PD ---
HPI Chief Complaint: Chest Pain Time Seen by Provider: 01:30 Travel History International Travel<30 days: No Contact w/Intl Traveler<30days: No Traveled to known affect area: No History of Present Illness HPI Patient is a 42-year-old female who said she was at work when she felt a tingle around her pacemaker battery she denies chest pressure she denies squeezing feeling. It did not radiate and then she says lately she's been having trouble with her "womens" issues and thinks it could be related . She says she 's having discharge vaginally and she thinks it is related. She took nothing for pain and nothing alleviates or worsens symptoms PFSH Past Medical History Hx Anticoagulant Therapy: Yes Arthritis: No Asthma: Yes Autoimmune Disease: No Blood Disorders: No Anxiety: Yes Depression: No Heart Rhythm Problems: No Cancer: No Cardiac Catheterization: Yes Cardiomyopathy: Yes Cardiovascular Problems: Yes (HYPERTENSION / AICD / CHF) High Cholesterol: No Chemotherapy: No Chest Pain: Yes Congestive Heart Failure: Yes COPD: No Cerebrovascular Accident: No Coronary Artery Disease: Yes Diabetes: No Diminished Hearing: No Endocrine: No Gastrointestinal Disorders: Yes (HIATAL HERNIA) GERD: No Glaucoma: No Genitourinary: No Headaches: No Hepatitis: No Hiatal Hernia: No Hypertension: Yes Immune Disorder: No Kidney Stones: No Musculoskeletal: No Neurologic: No Psychiatric: No Reproductive: No Respiratory: Yes (HISTORY OF PE) Immunizations Current: Yes Migraines: No Myocardial Infarction: No Radiation Therapy: No Renal Failure: No Seizures: No Sickle Cell Disease: No Sleep Apnea: No Thyroid Disease: No Ulcer: No Tetanus Vaccination: Unknown Influenza Vaccination: No PNEUMOCCOCAL Vaccine (Year): 2 ?: Not LMP: 11/01/2017 : 2 Para: 1 Miscarriage: 1 : 0 Past Surgical History Abdominal Surgery: Yes (EXPLORATORY LAPAROSCOPY) AICD: Yes (BIOTRONIC) Appendectomy: No Arteriovenous Shunt: No Cardiac Surgery: Yes (AICD) Cholecystectomy: No Coronary Artery Bypass Graft: No Ear Surgery: No Endocrine Surgery: No Eye Surgery: No Genitourinary Surgery: No Gynecologic Surgery: No Insulin Pump: No Joint Replacement: No Oral Surgery: No Pacemaker: Yes Thoracic Surgery: No Other Surgery: No Social History Alcohol Use: No Tobacco Use: No Substance Use: No Allergies-Medications (Allergen,Severity, Reaction): Coded Allergies: Sulfa (Sulfonamide Antibiotics) (Unverified Allergy, Severe, SHORTNESS OF BREATH, 11/11/17) Reported Meds & Prescriptions Reported Meds & Active Scripts Active Reported Entresto (Sacubitril-Valsartan) 97-103 Mg Tab 1 Tab PO BID Torsemide 20 Mg Tab 20 Mg PO BID Klor-Con 10 (Potassium Chloride) 10 Meq Tab 10 Meq PO BID Coreg (Carvedilol) 25 Mg Tab 25 Mg PO BID Aspir-81 (Aspirin) 81 Mg Tabdr Review of Systems Except as stated in HPI: all other systems reviewed are Neg Cardiovascular: Positive: Chest Pain or Discomfort, Palpitations Gastrointestinal: Positive: Abdominal Pain Physical Exam Narrative GENERAL: SKIN: Warm and dry. HEAD: Atraumatic. Normocephalic. EYES: Pupils equal and round. No scleral icterus. No injection or drainage. ENT: No nasal bleeding or discharge. Mucous membranes pink and moist. NECK: Trachea midline. No JVD. CARDIOVASCULAR: Regular rate and rhythm. RESPIRATORY: No accessory muscle use. Clear to auscultation. Breath sounds equal bilaterally. GASTROINTESTINAL: Abdomen soft, non-tender, nondistended. Hepatic and splenic margins not palpable. MUSCULOSKELETAL: Extremities without clubbing, cyanosis, or edema. No obvious deformities. NEUROLOGICAL: Awake and alert. No obvious cranial nerve deficits. Motor grossly within normal limits. Five out of 5 muscle strength in the arms and legs. Normal speech. PSYCHIATRIC: Appropriate mood and affect; insight and judgment normal. Data Data Last Documented VS Orders Orders Complete Blood Count With Diff (11/11/17 01:51) Comprehensive Metabolic Panel (11/11/17 01:51) Troponin I (11/11/17 01:51) Lipase (11/11/17 01:51) Urinalysis - C+S If Indicated (11/11/17 01:51) Electrocardiogram (11/11/17 ) Urine Culture (11/11/17 02:20) Chest, Single Ap (11/11/17 ) Ketorolac Inj (Toradol Inj) (11/11/17 04:30) Ed Discharge Order (11/11/17 05:12) Labs Laboratory Tests Test 11/11/17 02:20 White Blood Count 6.8 TH/MM3 Red Blood Count 3.52 MIL/MM3 Hemoglobin 8.7 GM/DL Hematocrit 27.5 % Mean Corpuscular Volume 78.1 FL Mean Corpuscular Hemoglobin 24.8 PG Mean Corpuscular Hemoglobin Concent 31.8 % Red Cell Distribution Width 14.7 % Platelet Count 299 TH/MM3 Mean Platelet Volume 8.4 FL Neutrophils (%) (Auto) 53.8 % Lymphocytes (%) (Auto) 33.8 % Monocytes (%) (Auto) 8.6 % Eosinophils (%) (Auto) 2.6 % Basophils (%) (Auto) 1.2 % Neutrophils # (Auto) 3.7 TH/MM3 Lymphocytes # (Auto) 2.3 TH/MM3 Monocytes # (Auto) 0.6 TH/MM3 Eosinophils # (Auto) 0.2 TH/MM3 Basophils # (Auto) 0.1 TH/MM3 CBC Comment DIFF FINAL Differential Comment Urine Color YELLOW Urine Turbidity HAZY Urine pH 5.5 Urine Specific [place] 1.028 Urine Protein 30 mg/dL Urine Glucose (UA) NEG mg/dL Urine Ketones NEG mg/dL Urine Occult Blood SMALL Urine Nitrite NEG Urine Bilirubin NEG Urine Urobilinogen LESS THAN 2.0 MG/DL Urine Leukocyte Esterase LARGE Urine RBC 66 /hpf Urine WBC /hpf Urine Squamous Epithelial Cells 5 /hpf Urine Bacteria RARE /hpf Urine Mucus FEW /lpf Urine Trichomonas RARE Microscopic Urinalysis Comment CULTURE INDICATED Blood Urea Nitrogen 18 MG/DL Creatinine 0.65 MG/DL Random Glucose 88 MG/DL Total Protein 8.2 GM/DL Albumin 3.3 GM/DL Calcium Level 9.3 MG/DL Alkaline Phosphatase 116 U/L Aspartate Amino Transf (AST/SGOT) 17 U/L Alanine Aminotransferase (ALT/SGPT) 22 U/L Total Bilirubin LESS THAN 0.1 MG/DL Sodium Level 140 MEQ/L Potassium Level 3.8 MEQ/L Chloride Level 107 MEQ/L Carbon Dioxide Level 27.8 MEQ/L Anion Gap 5 MEQ/L Estimat Glomerular Filtration Rate 120 ML/MIN Troponin I LESS THAN 0.02 NG/ML Lipase 144 U/L [facility] Medical Decision Making Medical Screen Exam Complete: Yes Emergency Medical Condition: Yes Differential Diagnosis chest pain NOS vs PPM malfunction costochondritis vs PNA Narrative Course pt has CXR PPM AICD wires intact and no infiltrates ekg NSR rate 75 and 1 PVC pt has normal work up safe for d/c charge and follow up in PCP Diagnosis Primary Impression: Chest pain, atypical Patient Instructions: General Instructions, Heart Palpitations (ED) Darlyn,Jose MD Nov 11, 2017 04:16
[2017-11-11] MEDS ORDERED: KETOROLAC TROMETHAMINE 30 MG/ML (IVP) VIAL IV PUSH ONE (04:30)
[2017-11-11 05:31] VITALS: BP 125/66; PULSE 75; RESP 17; TEMP 98.4; O2SAT 100
--- NOTE | 2017-11-11 22:37 | EKG ---
Date Performed: 11/11/2017 Time Performed: 01:50:31 PTAGE: 42 years EKG: Sinus rhythm WITH OCCASIONAL VENTRICULAR PREMATURE COMPLEXES VOLTAGE CRITERIA FOR LVH NONSPECIFIC T-WAVE ABNORMAL ITY ABNORMAL ECG PREVIOUS TRACING : 09/15/2017 13.03 Compared to prior tracing no significant change DOCTOR: Butch [place] Interpretating Date/Time 11/11/2017 22:36:08
== END 2017-11-11 05:58 | disposition home or self-care (01) ==
LOC: NEPE 01:14
DX: R07.89 Other chest pain (principal); I11.0 Hypertensive heart disease with heart failure; I50.9 Heart failure, unspecified; I25.10 Atherosclerotic heart disease of native coronary artery without angina pectoris; R82.71 Bacteriuria
CPT/HCPCS: 71010; 80053; 81001; 83690; 84484; 85025; 87086; 93005; 96374; 99285; J1885

== ENCOUNTER 2018-06-22 18:01 | Inpatient (IN) ==
--- NOTE | 2018-06-22 18:51 | ED ---
HPI General Chief complaint: Chest Pain Stated complaint: Chest Pain Time Seen by Provider: 06/22/18 18:32 Source: patient History of Present Illness HPI narrative: Patient presents to the emergency department secondary to a syncopal episode at [employer]. She does report LOC and unknown how long she was unconscious. States that she felt dizzy prior to. Although in the computer states that the chief complaint is chest pain, patient denies chest pain. She also denies shortness of breath, headache, nausea, vomiting, vaginal discharge, recent travel, fever, chills, dysuria. She does report diffuse lower abdominal pain described as being crampy, intermittent, variable duration, started after she woke up post syncopal episode. Last menstrual period was June 12, patient states that she is not .She was diagnosed with a PE many years ago and was placed on Coumadin for approximately 6 months the doctor took her off. Patient states pacer placed in 2015. Related Data Home Medications Medication Instructions Recorded Confirmed aspirin 81 mg PO DAILY 06/22/18 06/22/18 carvedilol [Coreg] 50 mg PO DAILY 06/22/18 06/22/18 sacubitril-valsartan [Entresto] 1 tab PO BID 06/22/18 06/22/18 Allergies Allergy/AdvReac Type Severity Reaction Status Date / Time Sulfa (Sulfonamide Allergy Severe SHORTNESS Verified 06/22/18 18:22 Antibiotics) OF BREATH Review of Systems ROS: all other systems reviewed are negative REPLACED BY [facility] Medical History Medical History Cardiomyopathy (Acute) Myocardial infarct (Acute) Social History Social History Substance History: No History of Abuse Second Hand Smoke Exposure: No Smoking Status: Never smoker How Often Do You Have a Drink Containing Alcohol: Never Recent Travel in [facility] within the Last 8 Weeks: No Recent Out of Country Travel within the Last 8 Weeks: No Immunization History Tetanus Immunization: Unsure Hx Influenza Vaccine This Season: No Exam Narrative Exam Narrative: GENERAL: Distress. SKIN: Focused skin assessment warm/dry. HEAD: Atraumatic. Normocephalic. EYES: Pupils equal and round. No scleral icterus. No injection or drainage. ENT: No nasal bleeding or discharge. Mucous membranes pink and moist. NECK: Trachea midline. No JVD. CARDIOVASCULAR: Tachycardic. + pacer. No murmur appreciated. RESPIRATORY: No accessory muscle use. Clear to auscultation. Breath sounds equal bilaterally. GASTROINTESTINAL: Abdomen soft, non-tender, obese. MUSCULOSKELETAL: No obvious deformities. No clubbing. No cyanosis. No edema. NEUROLOGICAL: Awake and alert. No obvious cranial nerve deficits. Motor grossly within normal limits. Normal speech. PSYCHIATRIC: Appropriate mood and affect; insight and judgment normal. Course Initial Documented Vital Signs Temperature 97.6 F 06/22/18 18:22 Pulse Rate 103 H 06/22/18 18:22 Respiratory Rate 16 06/22/18 18:22 Blood Pressure 140/89 06/22/18 18:22 Pulse Oximetry 96 06/22/18 18:22 Last Documented Vital Signs Temperature 97.6 F 06/22/18 18:22 Pulse Rate 107 H 06/22/18 19:49 Respiratory Rate 18 06/22/18 19:49 Blood Pressure 154/97 H 06/22/18 19:49 Pulse Oximetry 98 06/22/18 19:49 Sign Out Sign Out Data: Patient Sign Out occurred on 06/22/18 at 19:46. Patient's care was discussed, and care was transferred from Mya Ospina MD to Jose Santizo. Sign Out Comment: Sign out for labs, imaging results, discussion with Dr. Childress , and final dispo (likely admit). Last updated by Mya Ospina MD at 06/22/18 19:21 Post-Handoff Eval: I evaluated the patient examined the patient and spoke with Dr. Childress the shafting cleaner covering Dr. Menendez I have called the [employer] tech to come interrogate the pacemaker and Dr. Childress feels that Lopressor would be indicated but to wait until they come to interrogate the pacemaker patient's heart rate remains at 105 constant it seems that she is being paced at 105 with a wide QRS patient is stable at this time she is not altered mentally she is not hypotensive she is not having any symptomatic chest pain only complaint is dull abdominal pain awaiting [facility] will admit her to telemetry and have a cardiology consult Medical Decision Making MDM Narrative Medical decision making narrative: Patient presents to the emergency department post syncopal episode. Apparently she told the ER staff prior to my assessment that she had chest pain, but she denies chest pain and is reporting some diffuse lower abdominal pain. Placed on a telephone service adviser, continuous pulse ox , and labs, EKG, orthostatics, chest x-ray, and CT ordered. 190: Patient advises that she gets ECGs every 3 months to evaluate her pacer. ECG in ER is abnormal compared to the most recent we have. I have called the MD surgeon assistant for her shafting cleaner, Dr David, to request that he view the most recent office ECG to evaluate if similar to today's. Dr. Childress is currently in a procedure, have been advised that he will call back when he's finished. Will sign out to Dr. Santizo pending lab results, imaging, and discussion with shafting cleaner, Dr. Childress, whose surgeon assistant for Joann. 1918: Patient signed out to DR. Santizo for labs, imaging, final dispo. Differential Diagnosis Differential Diagnosis: CVA, TIA, ICH, ACS, orthostasis, arrythmia, , PE Lab Data Result diagrams: 06/22/18 18:35 06/22/18 18:35 Lab Results 06/22/18 06/22/18 06/22/18 Range/Units 18:35 18:35 18:35 WBC 7.7 (4.0-11.0) th/mm3 RBC 3.98 L (4.00-5.30) mil/mm3 Hgb 8.1 L (11.6-15.3) gm/dL Hct 26.4 L (35.0-46.0) % MCV 66.3 L (80.0-100.0) fL MCH 20.2 L (27.0-34.0) pg MCHC 30.5 L (32.0-36.0) % RDW 17.2 (11.6-17.2) % Plt Count 368 (150-450) th/mm3 MPV 8.0 (7.0-11.0) fL Neut % (Auto) 65.0 (16.0-70.0) % Lymph % (Auto) 25.6 (9.0-44.0) % [place] % (Auto) 7.5 (0.0-8.0) % Eos % (Auto) 1.3 (0.0-4.0) % Baso % (Auto) 0.6 (0.0-2.0) % Neut # (Auto) 5.0 (1.8-7.7) th/mm3 Lymph # (Auto) 2.0 (1.0-4.8) th/mm3 [place] # (Auto) 0.6 (0.0-0.9) th/mm3 Eos # (Auto) 0.1 (0.0-0.4) th/mm3 Baso # (Auto) 0.0 (0.0-0.2) th/mm3 WBC Differential . Differential Comment Auto diff final PT 10.9 (9.8-11.6) sec INR 1.1 Ratio APTT 20.1 L (24.3-30.1) sec D-Dimer Quant (PE/DVT) 1.15 H (0.00-0.50) mg/L FEU Sodium 141 (136-145) meq/L Potassium 3.1 L (3.5-5.1) meq/L Chloride 105 (98-107) meq/L Carbon Dioxide 26.6 (21.0-32.0) meq/L Anion Gap 9 (5-15) meq/L BUN 15 (7-18) mg/dL Creatinine 0.94 (0.50-1.00) mg/dL Estimated GFR 78 L (>89) mL/min Random Glucose 102 (74-106) mg/dL Calcium 8.9 (8.5-10.1) mg/dL Magnesium 1.9 (1.5-2.5) mg/dL Total Bilirubin 0.4 (0.2-1.0) mg/dL AST 16 (15-37) U/L ALT 21 (10-53) U/L Alkaline Phosphatase 77 (45-117) U/L Total Creatine Kinase 90 (26-192) U/L Troponin I 0.05 (0.02-0.05) ng/mL B-Natriuretic Peptide (0-100) pg/mL Total Protein 7.4 (6.4-8.2) g/dL Albumin 3.3 L (3.4-5.0) g/dL Lipase (73-393) U/L Urine Color (Yellw/Straw) Urine Clarity (Clear) Urine pH (5.0-8.5) Ur Specific [place] (1.002-1.035) Urine Protein (Neg-Trace) mg/dL Urine Glucose (UA) (Negative) mg/dL Urine Ketones (Negative) mg/dL Urine Occult Blood (Negative) Urine Nitrate (Negative) Urine Bilirubin (Negative) Urine Urobilinogen (Less than 2) mg/dL Ur Leukocyte Esterase (Negative) Urine RBC (0-3) /hpf Urine WBC (0-5) /hpf Ur Squamous Epith Cells (0-5) /hpf Urine Bacteria (None) /hpf Hyaline Casts (0-3) /lpf Micro UA Comment Urine Culture Comments 06/22/18 06/22/18 06/22/18 Range/Units 18:35 18:35 18:35 WBC (4.0-11.0) th/mm3 RBC (4.00-5.30) mil/mm3 Hgb (11.6-15.3) gm/dL Hct (35.0-46.0) % MCV (80.0-100.0) fL MCH (27.0-34.0) pg MCHC (32.0-36.0) % RDW (11.6-17.2) % Plt Count (150-450) th/mm3 MPV (7.0-11.0) fL Neut % (Auto) (16.0-70.0) % Lymph % (Auto) (9.0-44.0) % [place] % (Auto) (0.0-8.0) % Eos % (Auto) (0.0-4.0) % Baso % (Auto) (0.0-2.0) % Neut # (Auto) (1.8-7.7) th/mm3 Lymph # (Auto) (1.0-4.8) th/mm3 [place] # (Auto) (0.0-0.9) th/mm3 Eos # (Auto) (0.0-0.4) th/mm3 Baso # (Auto) (0.0-0.2) th/mm3 WBC Differential Differential Comment PT (9.8-11.6) sec INR Ratio APTT (24.3-30.1) sec D-Dimer Quant (PE/DVT) Cancelled (0.00-0.50) mg/L FEU Sodium (136-145) meq/L Potassium (3.5-5.1) meq/L Chloride (98-107) meq/L Carbon Dioxide (21.0-32.0) meq/L Anion Gap (5-15) meq/L BUN (7-18) mg/dL Creatinine (0.50-1.00) mg/dL Estimated GFR (>89) mL/min Random Glucose (74-106) mg/dL Calcium (8.5-10.1) mg/dL Magnesium (1.5-2.5) mg/dL Total Bilirubin (0.2-1.0) mg/dL AST (15-37) U/L ALT (10-53) U/L Alkaline Phosphatase (45-117) U/L Total Creatine Kinase (26-192) U/L Troponin I (0.02-0.05) ng/mL B-Natriuretic Peptide 698 H (0-100) pg/mL Total Protein (6.4-8.2) g/dL Albumin (3.4-5.0) g/dL Lipase 126 (73-393) U/L Urine Color (Yellw/Straw) Urine Clarity (Clear) Urine pH (5.0-8.5) Ur Specific [place] (1.002-1.035) Urine Protein (Neg-Trace) mg/dL Urine Glucose (UA) (Negative) mg/dL Urine Ketones (Negative) mg/dL Urine Occult Blood (Negative) Urine Nitrate (Negative) Urine Bilirubin (Negative) Urine Urobilinogen (Less than 2) mg/dL Ur Leukocyte Esterase (Negative) Urine RBC (0-3) /hpf Urine WBC (0-5) /hpf Ur Squamous Epith Cells (0-5) /hpf Urine Bacteria (None) /hpf Hyaline Casts (0-3) /lpf Micro UA Comment Urine Culture Comments 06/22/18 Range/Units 20:50 WBC (4.0-11.0) th/mm3 RBC (4.00-5.30) mil/mm3 Hgb (11.6-15.3) gm/dL Hct (35.0-46.0) % MCV (80.0-100.0) fL MCH (27.0-34.0) pg MCHC (32.0-36.0) % RDW (11.6-17.2) % Plt Count (150-450) th/mm3 MPV (7.0-11.0) fL Neut % (Auto) (16.0-70.0) % Lymph % (Auto) (9.0-44.0) % [place] % (Auto) (0.0-8.0) % Eos % (Auto) (0.0-4.0) % Baso % (Auto) (0.0-2.0) % Neut # (Auto) (1.8-7.7) th/mm3 Lymph # (Auto) (1.0-4.8) th/mm3 [place] # (Auto) (0.0-0.9) th/mm3 Eos # (Auto) (0.0-0.4) th/mm3 Baso # (Auto) (0.0-0.2) th/mm3 WBC Differential Differential Comment PT (9.8-11.6) sec INR Ratio APTT (24.3-30.1) sec D-Dimer Quant (PE/DVT) (0.00-0.50) mg/L FEU Sodium (136-145) meq/L Potassium (3.5-5.1) meq/L Chloride (98-107) meq/L Carbon Dioxide (21.0-32.0) meq/L Anion Gap (5-15) meq/L BUN (7-18) mg/dL Creatinine (0.50-1.00) mg/dL Estimated GFR (>89) mL/min Random Glucose (74-106) mg/dL Calcium (8.5-10.1) mg/dL Magnesium (1.5-2.5) mg/dL Total Bilirubin (0.2-1.0) mg/dL AST (15-37) U/L ALT (10-53) U/L Alkaline Phosphatase (45-117) U/L Total Creatine Kinase (26-192) U/L Troponin I (0.02-0.05) ng/mL B-Natriuretic Peptide (0-100) pg/mL Total Protein (6.4-8.2) g/dL Albumin (3.4-5.0) g/dL Lipase (73-393) U/L Urine Color Yellow (Yellw/Straw) Urine Clarity Hazy H (Clear) Urine pH 6.0 (5.0-8.5) Ur Specific [place] 1.013 (1.002-1.035) Urine Protein 100 H (Neg-Trace) mg/dL Urine Glucose (UA) Negative (Negative) mg/dL Urine Ketones Negative (Negative) mg/dL Urine Occult Blood Negative (Negative) Urine Nitrate Negative (Negative) Urine Bilirubin Negative (Negative) Urine Urobilinogen Less than 2 (Less than 2) mg/dL Ur Leukocyte Esterase Negative (Negative) Urine RBC 1 (0-3) /hpf Urine WBC 4 (0-5) /hpf Ur Squamous Epith Cells 1 (0-5) /hpf Urine Bacteria Rare H (None) /hpf Hyaline Casts 4 (0-3) /lpf Micro UA Comment Culture not ind Urine Culture Comments Culture not ind Imaging Data Radiologist's impression: Chest X-Ray 06/22/18 18:31 CONCLUSION: Moderate cardiomegaly without perceptible failure or acute pneumonia. Head CT 06/22/18 19:09 CONCLUSION: 1. No bleed, mass effect or midline shift. 2. Questionable vasogenic edema in the right frontal lobe and contrast- enhanced CT is recommended in this patient who has a cardiac pacemaker. 3. Nonspecific vague subcentimeter lucencies of the calvarium. Metastatic disease and multiple myeloma would be in the differential. . Abdomen/Pelvis CT 06/22/18 22:00 CONCLUSION: 1. Pericholecystic fluid and probable mild wall thickening of the gallbladder. These findings are nonspecific, potentially related to underlying liver disease. Acute cholecystitis cannot excludable. Please correlate clinically. 2. Enlarged and fatty infiltrated liver. 3. Umbilical hernia containing indurated fat. No bowel herniation. 4. Large pedunculated uterine fibroid unchanged. 5. Cardiomegaly. 6. No obstruction or acute gastrointestinal tract inflammatory changes. Normal appendix. ECG Data Attestation: I personally reviewed and interpreted this ECG as follows: (Sinus tachy, rate 105, left axis deviation, IVCD (patient has pacer)-similar to ecg on 06/05/17) Discharge Plan Discharge Disposition Patient Disposition: 30 Still Patient Discharge Details Diagnosis: Ventricular fibrillation Physicians Team ED Provider: Jose Santizo Primary Care Provider: Primary Care Jabari,[place] Attending Provider: Laura Mendez Status ED Status: Admitted Patient
--- NOTE | 2018-06-22 19:08 | XR ---
EXAM DATE: 06/22/2018 6:55 PM EDT AGE/SEX: 43 years / Female INDICATIONS: Short of breath. CLINICAL DATA: This is the patient's initial encounter. Patient reports that signs and symptoms have been present for 1 day and indicates a pain score of 5/10. MEDICAL/SURGICAL HISTORY: Congestive heart failure. Hypertension. Cardiomyopathy. Coronary art snehal disease. Pulmonary embolism. Asthma. Hiatal hernia. . Defibrillator. Cardiac catheterization. Pacemaker. COMPARISON: [facility] [place], 11/11/[place]. . FINDINGS: Moderate cardiomegaly present, considerably increased from 2017. Cardiac pacer again noted. No infilt rate, effusion or pneumothorax. CONCLUSION: Moderate cardiomegaly without perceptible failure or acute pneumonia. Electronically signed by: Vic Lindsay MD 06/22/2018 7:06 PM EDT
[2018-06-22 19:18] LABS: Baso % (Auto) 0.6 % (0.0-2.0); Eos # (Auto) 0.1 th/mm3 (0.0-0.4); Eos % (Auto) 1.3 % (0.0-4.0); Hematocrit 26.4 % (35.0-46.0); Hemoglobin 8.1 gm/dL (11.6-15.3); Lymph % (Auto) 25.6 % (9.0-44.0); Mean Corpuscular Hemoglobin 20.2 pg (27.0-34.0); Mean Corpuscular Volume 66.3 fL (80.0-100.0); Mono # (Auto) 0.6 th/mm3 (0.0-0.9); Mono % (Auto) 7.5 % (0.0-8.0); Platelet Count 368 th/mm3 (150-450); Red Blood Count 3.98 mil/mm3 (4.00-5.30); Red Cell Distribution Width 17.2 % (11.6-17.2); White Blood Count 7.7 th/mm3 (4.0-11.0)
[2018-06-22 19:29] LABS: Mean Corpuscular HGB Conc 30.5 % (32.0-36.0)
[2018-06-22 19:34] LABS: Albumin 3.3 g/dL (3.4-5.0); Anion Gap 9 meq/L (5-15); Aspartate Aminotransferase 16 U/L (15-37); Blood Urea Nitrogen 15 mg/dL (7-18); Calcium 8.9 mg/dL (8.5-10.1); Carbon Dioxide 26.6 meq/L (21.0-32.0); Chloride 105 meq/L (98-107); Glomerular Filtration Rate 78 mL/min (>89); Glucose,Random 102 mg/dL (74-106); Magnesium 1.9 mg/dL (1.5-2.5); Potassium 3.1 meq/L (3.5-5.1); Sodium 141 meq/L (136-145)
[2018-06-22 19:36] LABS: Alanine Aminotransferase 21 U/L (10-53)
[2018-06-22 19:40] LABS: Alkaline Phosphatase 77 U/L (45-117); Total Protein 7.4 g/dL (6.4-8.2); Troponin I 0.05 ng/mL (0.02-0.05)
[2018-06-22 19:49] LABS: Creatine Kinase 90 U/L (26-192)
--- NOTE | 2018-06-22 19:49 | CT ---
EXAM DATE: 06/22/2018 7:41 PM EDT AGE/SEX: 43 years / Female INDICATIONS: Syncope. CLINICAL DATA: This is the patient's initial encounter. Patient reports that signs and symptoms have been present for 1 day and indicates a pain score of 0/10. MEDICAL/SURGICAL HISTORY: Cardiovascular disease. None. RADIATION DOSE: 56.35 CTDI (mGy) COMPARISON: [facility], CHEST 1V SINGLE AP, 06/22/2018. . TECHNIQUE: CT of the head without contrast. Using automated exposure control and adjustment of the mA and/or kV according to patient size, radiation dose was kept as low as reasonably achievable to ob tain optimal diagnostic quality images. DICOM format image data is available electronically for revi ew and comparison. FINDINGS: No intracranial hemorrhage or hematoma. There is questionable focal vasogenic edema in the right fron bernadine lobe, for example series 2 image 16. An underlying mass is not excludable. No mass effect or midl ine shift demonstrated. No evidence of an acute ischemic event. No skull fracture. Vague lucencies are seen of the calvarium measuring up to 8 mm in size, for exampl e in the frontal bone on series 301 images 22 and 24. CONCLUSION: 1. No bleed, mass effect or midline shift. 2. Questionable vasogenic edema in the right frontal lobe and contrast-enhanced CT is recommended in this patient who has a cardiac pacemaker. 3. Nonspecific vague subcentimeter lucencies of the calvarium. Metastatic disease and multiple myelo ma would be in the differential. . Electronically signed by: Vic Lindsay MD 06/22/2018 7:48 PM EDT
[2018-06-22 19:59] LABS: Activated Partial Thrombo Time 20.1 sec (24.3-30.1); INR 1.1 Ratio; Prothrombin Time 10.9 sec (9.8-11.6)
[2018-06-22 20:01] LABS: D-Dimer 1.15 mg/L FEU (0.00-0.50)
[2018-06-22] MEDS ORDERED: Metoprolol Inj 5 MG/5 ML Vial IV.PUSH ONE (21:20)
[2018-06-22 21:22] LABS: Bacteria,Urine Rare /hpf; Bilirubin,Urine Negative (Negative); Clarity,Urine Hazy (Clear); Color,Urine Yellow (Yellw/Straw); Glucose,Urine (UA) Negative (Negative); Hyaline Casts,Urine 4 /lpf (0-3); Leukocyte Esterase,Urine Negative (Negative); Nitrite,Urine Negative (Negative); Specific Gravity,Urine 1.013 (1.002-1.035); Squamous Epithelial Cell,Urine 1 /hpf (0-5)
--- NOTE | 2018-06-22 21:55 | ECG ---
Date Performed: 06/22/2018 Time Performed: 18:24:38 PTAGE: 43 years EKG: SINUS TACHYCARDIA POSSIBLE LEFT ATRIAL ENLARGEMENT MARKED LEFT AXIS DEVIATION LBBB ABNORMAL ECG Compared to PREVIOUS TRACING , rate faster, narrow QRS no longer present DOCTOR: Gaby Balderrama Interpretating Date/Time 06/22/2018 21:55:06
[2018-06-22] MEDS ORDERED: Famotidine PF Inj 20 MG/2 ML Vial IV.PUSH ONE (21:59)
[2018-06-22] MEDS ORDERED: Carvedilol 12.5 MG Tablet PO ONE (21:59)
--- NOTE | 2018-06-22 22:55 | CT ---
EXAM DATE: 06/22/2018 10:46 PM EDT AGE/SEX: 43 years / Female INDICATIONS: Right lower quadrant pain. CLINICAL DATA: This is the patient's initial encounter. Patient reports that signs and symptoms have been present for 1 day and indicates a pain score of 5/10. MEDICAL/SURGICAL HISTORY: Myocardial infarction. Cardiovascular disease. Pacemaker. ORAL CONTRAST: No oral contrast ingested. RADIATION DOSE: 35.00 CTDI (mGy) COMPARISON: [facility] – [place], CT ABDOMEN & PELVIS W CONTRAST, 11/07/2016. . TECHNIQUE: Multiple contiguous axial images were obtained through the abdomen and pelvis following b olus infusion of 95 ml Omnipaque 350 (iohexol) nonionic water-soluble contrast as a single exam dos e. No oral contrast ingested. Using automated exposure control and adjustment of the mA and/or kV ac cording to patient size, radiation dose was kept as low as reasonably achievable to obtain optimal di agnostic quality images. DICOM format image data is available electronically for review and comparis on. FINDINGS: Liver measures 23 cm craniocaudal and is mild fatty infiltrated. No focal hepatic lesion. Spleen, pancreas, adrenal glands and kidneys are all within normal limits. No obstruction or acute inflammatory changes are seen of the gastrointestinal tract. The appendix is well-visualized, normal. Pedunculated subserosal fibroid of the right side of the uterus measuring approximately 8 cm is uncha nged. Small pericholecystic fluid. Wall also appears potentially mildly thickened. There is a fat-containing umbilical hernia. The fat appears mildly indurated. No bowel herniation. Abdominal aorta is atherosclerotic. No aneurysm. Visualized lung bases are clear. Heart is enlarged. CONCLUSION: 1. Pericholecystic fluid and probable mild wall thickening of the gallbladder. These findings are no nspecific, potentially related to underlying liver disease. Acute cholecystitis cannot excludable. Pl ease correlate clinically. 2. Enlarged and fatty infiltrated liver. 3. Umbilical hernia containing indurated fat. No bowel herniation. 4. Large pedunculated uterine fibroid unchanged. 5. Cardiomegaly. 6. No obstruction or acute gastrointestinal tract inflammatory changes. Normal appendix. Electronically signed by: Vic Lindsay MD 06/22/2018 10:53 PM EDT
[2018-06-22] MEDS ORDERED: Potassium Bicarbonate 25 MEQ Effervescent Tablet PO ONE (23:17)
[2018-06-22] MEDS ORDERED: Bisacodyl 10 MG Supp RECTAL PRN (23:20)
[2018-06-22] MEDS ORDERED: Acetaminophen 325 MG Tablet PO PRN (23:20)
[2018-06-22] MEDS ORDERED: Temazepam 15 MG Capsule PO PRN (23:20)
--- NOTE | 2018-06-22 23:28 | P.HP ---
History of Present Illness Service: [facility] Primary Care Physician: No Primary Care Physician History of Present Illness: 43-year-old female with past medical history significant for cardiomyopathy with an ejection fraction of 10-15%, hypertension and history of previous PE presents to the emergency department after a syncopal episode and [employer]. Patient reports she was shopping at [employer] when she felt hot and "funny". She then states that she has no memory of what happened next and awoke on the floor with a crowd of people around her. She reports that 1 of the other shoppers found her unconscious on the ground in the [place] of [employer]. Her pacemaker was interrogated and she had V. fib followed by defibrillator discharge and paced rhythm. She denies ever having any chest pain or shortness of breath. She did not feel that shock. No palpitations. No abdominal pain. No nausea/vomiting/ diarrhea. No fever/chills. Inpatient Certification: I certify that the inpatient services were ordered in accordance with Medicare regulations governing the order. This includes certification that hospital inpatient services are reasonable and necessary and in the case of services not specified as inpatient-only under 42 CFR 419.22(n), that they are appropriately provided as inpatient services in accordance to with the 2-midnight benchmark under 43 CFR 412.3(e) Review of Systems All other systems reviewed negative except as stated in HPI [facility] - History History Provided By: Patient - Medical History Medical History: Medical History (Last Updated 06/22/18 @ 23:20 by Laura Mendez MD) Cardiomyopathy HTN (hypertension) History of pulmonary embolism Myocardial infarct - Surgical History Surgical History: Surgical History (Last Updated 06/22/18 @ 23:20 by Laura Mendez MD) H/O cardiac catheterization - Family History Family History: Family History (Last Updated 06/22/18 @ 23:21 by Laura Mendez MD) Other Family history normal - Tobacco History Second Hand Smoke Exposure: No Smoking Status: Never smoker - Alcohol History How Often Do You Have a Drink Containing Alcohol: Never - Substance Use History Substance History: No History of Abuse - Travel History Recent Travel in the [place] Within the Last 8 Weeks: No Recent Travel Out of the Country Within the Last 8 Weeks: No - Immunization History Tetanus Immunization: Unsure Hx Influenza Vaccine This Season: No Medications and Allergies Allergies Allergy/AdvReac Type Severity Reaction Status Date / Time Sulfa (Sulfonamide Allergy Severe SHORTNESS Verified 06/22/18 18:22 Antibiotics) OF BREATH Home Medications Medication Instructions Recorded Confirmed Type aspirin 81 mg PO DAILY 06/22/18 06/22/18 History carvedilol [Coreg] 50 mg PO DAILY 06/22/18 06/22/18 History sacubitril-valsartan [Entresto] 1 tab PO BID 06/22/18 06/22/18 History Exam Vital signs: Vital Signs 06/22/18 18:22 06/22/18 19:49 Temperature 97.6 F Pulse Rate 103 H 107 H Respiratory Rate 16 18 Blood Pressure 140/89 154/97 H Pulse Oximetry 96 98 Intake & Output 06/22/18 06/22/18 06/23/18 06:59 18:59 06:59 Weight 123.831 kg Narrative: Gen.: No acute distress Head: Normocephalic. Atraumatic. EENT: Pupils equal round and reactive to light. Nose without drainage. Airway intact. Throat without injection. Cardiovascular: Regular rate and rhythm. No murmurs, rubs or gallops. Respiratory: Lungs clear to auscultation bilaterally. No wheezes or rhonchi. Abdomen: Soft, nontender, nondistended. No peritoneal signs. Musculoskeletal: No gross deformities. No edema. Skin: No obvious rashes or erythema. Neuro: Sensory and motor grossly intact. Cranial nerves II through XII grossly intact. Psych: Appropriate mood and affect Results - Labs CBC & Chem 7: 06/22/18 18:35 06/22/18 18:35 Labs: Laboratory Results - last 24 hr 06/22/18 06/22/18 06/22/18 18:35 18:35 18:35 WBC 7.7 RBC 3.98 L Hgb 8.1 L Hct 26.4 L MCV 66.3 L MCH 20.2 L MCHC 30.5 L RDW 17.2 Plt Count 368 MPV 8.0 Neut % (Auto) 65.0 Lymph % (Auto) 25.6 [place] % (Auto) 7.5 Eos % (Auto) 1.3 Baso % (Auto) 0.6 Neut # (Auto) 5.0 Lymph # (Auto) 2.0 [place] # (Auto) 0.6 Eos # (Auto) 0.1 Baso # (Auto) 0.0 WBC Differential . Differential Comment Auto diff final PT 10.9 INR 1.1 APTT 20.1 L D-Dimer Quant (PE/DVT) 1.15 H Sodium 141 Potassium 3.1 L Chloride 105 Carbon Dioxide 26.6 Anion Gap 9 BUN 15 Creatinine 0.94 Estimated GFR 78 L Random Glucose 102 Calcium 8.9 Magnesium 1.9 Total Bilirubin 0.4 AST 16 ALT 21 Alkaline Phosphatase 77 Total Creatine Kinase 90 Troponin I 0.05 B-Natriuretic Peptide Total Protein 7.4 Albumin 3.3 L Lipase Urine Color Urine Clarity Urine pH Ur Specific [place] Urine Protein Urine Glucose (UA) Urine Ketones Urine Occult Blood Urine Nitrate Urine Bilirubin Urine Urobilinogen Ur Leukocyte Esterase Urine RBC Urine WBC Ur Squamous Epith Cells Urine Bacteria Hyaline Casts Micro UA Comment Urine Culture Comments 06/22/18 06/22/18 06/22/18 18:35 18:35 18:35 WBC RBC Hgb Hct MCV MCH MCHC RDW Plt Count MPV Neut % (Auto) Lymph % (Auto) [place] % (Auto) Eos % (Auto) Baso % (Auto) Neut # (Auto) Lymph # (Auto) [place] # (Auto) Eos # (Auto) Baso # (Auto) WBC Differential Differential Comment PT INR APTT D-Dimer Quant (PE/DVT) Cancelled Sodium Potassium Chloride Carbon Dioxide Anion Gap BUN Creatinine Estimated GFR Random Glucose Calcium Magnesium Total Bilirubin AST ALT Alkaline Phosphatase Total Creatine Kinase Troponin I B-Natriuretic Peptide 698 H Total Protein Albumin Lipase 126 Urine Color Urine Clarity Urine pH Ur Specific [place] Urine Protein Urine Glucose (UA) Urine Ketones Urine Occult Blood Urine Nitrate Urine Bilirubin Urine Urobilinogen Ur Leukocyte Esterase Urine RBC Urine WBC Ur Squamous Epith Cells Urine Bacteria Hyaline Casts Micro UA Comment Urine Culture Comments 06/22/18 20:50 WBC RBC Hgb Hct MCV MCH MCHC RDW Plt Count MPV Neut % (Auto) Lymph % (Auto) [place] % (Auto) Eos % (Auto) Baso % (Auto) Neut # (Auto) Lymph # (Auto) [place] # (Auto) Eos # (Auto) Baso # (Auto) WBC Differential Differential Comment PT INR APTT D-Dimer Quant (PE/DVT) Sodium Potassium Chloride Carbon Dioxide Anion Gap BUN Creatinine Estimated GFR Random Glucose Calcium Magnesium Total Bilirubin AST ALT Alkaline Phosphatase Total Creatine Kinase Troponin I B-Natriuretic Peptide Total Protein Albumin Lipase Urine Color Yellow Urine Clarity Hazy H Urine pH 6.0 Ur Specific [place] 1.013 Urine Protein 100 H Urine Glucose (UA) Negative Urine Ketones Negative Urine Occult Blood Negative Urine Nitrate Negative Urine Bilirubin Negative Urine Urobilinogen Less than 2 Ur Leukocyte Esterase Negative Urine RBC 1 Urine WBC 4 Ur Squamous Epith Cells 1 Urine Bacteria Rare H Hyaline Casts 4 Micro UA Comment Culture not ind Urine Culture Comments Culture not ind - Imaging Impressions Chest X-Ray 06/22/18 18:31 CONCLUSION: Moderate cardiomegaly without perceptible failure or acute pneumonia. Head CT 06/22/18 19:09 CONCLUSION: 1. No bleed, mass effect or midline shift. 2. Questionable vasogenic edema in the right frontal lobe and contrast- enhanced CT is recommended in this patient who has a cardiac pacemaker. 3. Nonspecific vague subcentimeter lucencies of the calvarium. Metastatic disease and multiple myeloma would be in the differential. . Abdomen/Pelvis CT 06/22/18 22:00 CONCLUSION: 1. Pericholecystic fluid and probable mild wall thickening of the gallbladder. These findings are nonspecific, potentially related to underlying liver disease. Acute cholecystitis cannot excludable. Please correlate clinically. 2. Enlarged and fatty infiltrated liver. 3. Umbilical hernia containing indurated fat. No bowel herniation. 4. Large pedunculated uterine fibroid unchanged. 5. Cardiomegaly. 6. No obstruction or acute gastrointestinal tract inflammatory changes. Normal appendix. Caprini VTE Risk Assessment Caprini VTE Risk Assessment: No/Low Risk (score <= 1) Caprini Risk Assessment Model: Point Value = 1 Point Value = 2 Point Value = 3 Point Value = 5 Age 41-60 Minor surgery BMI > 25 kg/m2 Swollen legs Varicose veins or History of unexplained or recurrent spontaneous Oral contraceptives or hormone replacement Sepsis (< 1 month) Serious lung disease, including pneumonia (< 1 month) Abnormal pulmonary function Acute myocardial infarction Congestive heart failure (< 1 month) History of inflammatory bowel disease Medical patient at bed rest Age 61-74 Arthroscopic surgery Major open surgery (> 45 min) Laparoscopic surgery (> 45 min) Malignancy Confined to bed (> 72 hours) Immobilizing plaster cast Central venous access Age >= 75 History of VTE Family history of VTE Factor V Leiden Prothrombin [id number] Lupus anticoagulant Anticardiolipin antibodies Elevated serum homocysteine Heparin-induced thrombocytopenia Other congenital or acquired thrombophilia Stroke (< 1 month) Elective arthroplasty Hip, pelvis, or leg fracture Acute spinal cord injury (< 1 month) Prophylaxis Regimen: Total Risk Factor Score Risk Level Prophylaxis Regimen 0-1 Low Early ambulation 2 Moderate Order ONE of the following: *Sequential Compression Device (SCD) *Heparin 5000 units SQ BID 3-4 Higher Order ONE of the following medications: *Heparin 5000 units SQ TID *Enoxaparin/Lovenox 40 mg SQ daily (WT < 150 kg, CrCl > 30 mL/min) *Enoxaparin/Lovenox 30 mg SQ daily (WT < 150 kg, CrCl > 10-29 mL/min) *Enoxaparin/Lovenox 30 mg SQ BID (WT < 150 kg, CrCl > 30 mL/min) AND/OR *Sequential Compression Device (SCD) 5 or more Highest Order ONE of the following medications: *Heparin 5000 units SQ TID (Preferred with Epidurals) *Enoxaparin/Lovenox 40 mg SQ daily (WT < 150 kg, CrCl > 30 mL/min) *Enoxaparin/Lovenox 30 mg SQ daily (WT < 150 kg, CrCl > 10-29 mL/min) *Enoxaparin/Lovenox 30 mg SQ BID (WT < 150 kg, CrCl > 30 mL/min) AND *Sequential Compression Device (SCD) Assessment and Plan - Plan Assessment/plan: 1. Syncope/defibrillator discharge/ventricular fibrillation Pacemaker interrogated showed ventricular fibrillation followed by shock and then paced rhythm Currently tachycardic with heart rate in the 90s Cardiology consulted, Dr. Menendez, appreciate recommendations Status post amiodarone and metoprolol in the 2. Abnormal head CT Patient with questionable vasogenic edema in the right frontal lobe and nonspecific subcentimeter lucencies of the calvarium. Metastatic disease and multiple myeloma are in the differential. Neurology consulted, appreciate assistance Contrast CT head pending (patient cannot have MRI secondary to AICD) 3. Cardiomyopathy Continue Entresto Continue beta chandni 4. Hypertension Continue home carvedilol 5. Hypokalemia Potassium 3.1 Aggressive repletion with p.o. and IV potassium Monitor BMP FEN Heart healthy diet Electrolytes: As above
[2018-06-23] MEDS: Potassium Chlor 10 mEq Premix 10 MEQ/100 ML PIGGYBACK IV.SIG SCH ×3 (00:15→02:45)
[2018-06-23] MEDS: Heparin - SQ 10,000 UNITS/ML Vial SQ SCH ×2 (00:30→13:45)
[2018-06-23 06:19] LABS: Baso # (Auto) 0.1 th/mm3 (0.0-0.2); Baso % (Auto) 0.8 % (0.0-2.0); Eos # (Auto) 0.1 th/mm3 (0.0-0.4); Eos % (Auto) 1.1 % (0.0-4.0); Hematocrit 25.2 % (35.0-46.0); Hemoglobin 7.6 gm/dL (11.6-15.3); Lymph # (Auto) 1.3 th/mm3 (1.0-4.8); Lymph % (Auto) 20.1 % (9.0-44.0); Mean Corpuscular Hemoglobin 20.1 pg (27.0-34.0); Mean Corpuscular Volume 66.5 fL (80.0-100.0); Mean Platelet Volume 7.7 fL (7.0-11.0); Mono # (Auto) 0.5 th/mm3 (0.0-0.9); Mono % (Auto) 7.4 % (0.0-8.0); Neut # (Auto) 4.6 th/mm3 (1.8-7.7); Neut % (Auto) 70.6 % (16.0-70.0); Platelet Count 333 th/mm3 (150-450); Red Blood Count 3.78 mil/mm3 (4.00-5.30); Red Cell Distribution Width 16.6 % (11.6-17.2); White Blood Count 6.5 th/mm3 (4.0-11.0)
[2018-06-23 06:22] LABS: Mean Corpuscular HGB Conc 30.2 % (32.0-36.0)
[2018-06-23 06:50] LABS: Anion Gap 7 meq/L (5-15); Blood Urea Nitrogen 13 mg/dL (7-18); Carbon Dioxide 27.3 meq/L (21.0-32.0); Chloride 107 meq/L (98-107); Glomerular Filtration Rate Greater Than 89 mL/min (>89); Glucose,Random 105 mg/dL (74-106); Sodium 141 meq/L (136-145)
[2018-06-23] MEDS: Carvedilol 12.5 MG Tablet PO SCH (08:08)
[2018-06-23] MEDS ORDERED: Sodium Chlor 0.9% Inj 250 ML IV.SIG SCH (12:00)
--- NOTE | 2018-06-23 13:19 | P.PNIM ---
Subjective Interval history: Patient says she is feeling lightheaded, especially with standing. Denies any chest pain or shortness of breath currently. She says she does not remember the episode of passing out yesterday. She does say she had a ringing in her ears just prior to passing out. Patient reports a long history of anemia secondary to menorrhagia. She says she has fibroids which cause heavy periods. She is not having her period at this time. Physical Exam Vital signs: Vital Signs 06/22/18 18:22 06/22/18 19:49 06/23/18 00:32 Temperature 97.6 F Pulse Rate 103 H 107 H 86 Respiratory Rate 16 18 18 Blood Pressure 140/89 154/97 H 144/81 H Pulse Oximetry 96 98 96 06/23/18 04:00 06/23/18 05:00 06/23/18 05:57 Temperature 97.6 F Pulse Rate 84 84 85 Respiratory Rate 16 Blood Pressure 104/65 Pulse Oximetry 98 06/23/18 07:00 06/23/18 08:00 06/23/18 09:00 Temperature 98.0 F Pulse Rate 85 86 85 Respiratory Rate 18 Blood Pressure 113/81 Pulse Oximetry 98 Intake & Output 06/22/18 06/23/18 06/23/18 18:59 06:59 18:59 Intake Total 300 / 300 240 / 240 Output Total 0 / 0 Balance 300 / 300 240 / 240 Weight 123.831 kg 146 kg Intake: IV 300 / 300 KCl 10 mEq Premix Inj 10 meq In 300 / 300 100 ml @ 100 mls/hr IV.SIG Q1H ILIANA Rx#:[id number] Oral 0 / 0 240 / 240 Output: Urine 0 / 0 Other: Date of Last Bowel Movement 06/22/18 Narrative: GENERAL: Patient sitting up in bed. Appears comfortable. SKIN: Warm and dry. HEAD: Normocephalic. EYES: No scleral icterus. No injection or drainage. NECK: Supple, trachea midline. No JVD. CARDIOVASCULAR: Regular rate and rhythm without murmurs, gallops, or rubs. RESPIRATORY: Breath sounds equal bilaterally. No accessory muscle use. GASTROINTESTINAL: Abdomen soft, non-tender, nondistended. MUSCULOSKELETAL: No cyanosis, or edema. BACK: Nontender without obvious deformity. No CVA tenderness. Results - Labs CBC & Chem 7: 06/23/18 06:06 06/23/18 06:06 Laboratory Results - last 24 hr 06/22/18 06/22/18 06/22/18 18:35 18:35 18:35 WBC 7.7 RBC 3.98 L Hgb 8.1 L Hct 26.4 L MCV 66.3 L MCH 20.2 L MCHC 30.5 L RDW 17.2 Plt Count 368 MPV 8.0 Neut % (Auto) 65.0 Lymph % (Auto) 25.6 [place] % (Auto) 7.5 Eos % (Auto) 1.3 Baso % (Auto) 0.6 Neut # (Auto) 5.0 Lymph # (Auto) 2.0 [place] # (Auto) 0.6 Eos # (Auto) 0.1 Baso # (Auto) 0.0 WBC Differential . Differential Comment Auto diff final PT 10.9 INR 1.1 APTT 20.1 L D-Dimer Quant (PE/DVT) 1.15 H Sodium 141 Potassium 3.1 L Chloride 105 Carbon Dioxide 26.6 Anion Gap 9 BUN 15 Creatinine 0.94 Estimated GFR 78 L Random Glucose 102 Calcium 8.9 Magnesium 1.9 Total Bilirubin 0.4 AST 16 ALT 21 Alkaline Phosphatase 77 Total Creatine Kinase 90 Troponin I 0.05 B-Natriuretic Peptide Total Protein 7.4 Albumin 3.3 L Lipase Urine Color Urine Clarity Urine pH Ur Specific [place] Urine Protein Urine Glucose (UA) Urine Ketones Urine Occult Blood Urine Nitrate Urine Bilirubin Urine Urobilinogen Ur Leukocyte Esterase Urine RBC Urine WBC Ur Squamous Epith Cells Urine Bacteria Hyaline Casts Micro UA Comment Urine Culture Comments 06/22/18 06/22/18 06/22/18 18:35 18:35 18:35 WBC RBC Hgb Hct MCV MCH MCHC RDW Plt Count MPV Neut % (Auto) Lymph % (Auto) [place] % (Auto) Eos % (Auto) Baso % (Auto) Neut # (Auto) Lymph # (Auto) [place] # (Auto) Eos # (Auto) Baso # (Auto) WBC Differential Differential Comment PT INR APTT D-Dimer Quant (PE/DVT) Cancelled Sodium Potassium Chloride Carbon Dioxide Anion Gap BUN Creatinine Estimated GFR Random Glucose Calcium Magnesium Total Bilirubin AST ALT Alkaline Phosphatase Total Creatine Kinase Troponin I B-Natriuretic Peptide 698 H Total Protein Albumin Lipase 126 Urine Color Urine Clarity Urine pH Ur Specific [place] Urine Protein Urine Glucose (UA) Urine Ketones Urine Occult Blood Urine Nitrate Urine Bilirubin Urine Urobilinogen Ur Leukocyte Esterase Urine RBC Urine WBC Ur Squamous Epith Cells Urine Bacteria Hyaline Casts Micro UA Comment Urine Culture Comments 06/22/18 06/23/18 06/23/18 20:50 06:06 06:06 WBC 6.5 RBC 3.78 L Hgb 7.6 L Hct 25.2 L MCV 66.5 L MCH 20.1 L MCHC 30.2 L RDW 16.6 Plt Count 333 MPV 7.7 Neut % (Auto) 70.6 H Lymph % (Auto) 20.1 [place] % (Auto) 7.4 Eos % (Auto) 1.1 Baso % (Auto) 0.8 Neut # (Auto) 4.6 Lymph # (Auto) 1.3 [place] # (Auto) 0.5 Eos # (Auto) 0.1 Baso # (Auto) 0.1 WBC Differential . Differential Comment Auto diff final PT INR APTT D-Dimer Quant (PE/DVT) Sodium 141 Potassium 4.0 D Chloride 107 Carbon Dioxide 27.3 Anion Gap 7 BUN 13 Creatinine 0.79 Estimated GFR Greater than 89 Random Glucose 105 Calcium 9.0 Magnesium Total Bilirubin AST ALT Alkaline Phosphatase Total Creatine Kinase Troponin I B-Natriuretic Peptide Total Protein Albumin Lipase Urine Color Yellow Urine Clarity Hazy H Urine pH 6.0 Ur Specific [place] 1.013 Urine Protein 100 H Urine Glucose (UA) Negative Urine Ketones Negative Urine Occult Blood Negative Urine Nitrate Negative Urine Bilirubin Negative Urine Urobilinogen Less than 2 Ur Leukocyte Esterase Negative Urine RBC 1 Urine WBC 4 Ur Squamous Epith Cells 1 Urine Bacteria Rare H Hyaline Casts 4 Micro UA Comment Culture not ind Urine Culture Comments Culture not ind - Imaging Impressions Chest X-Ray 06/22/18 18:31 CONCLUSION: Moderate cardiomegaly without perceptible failure or acute pneumonia. Head CT 06/22/18 19:09 CONCLUSION: 1. No bleed, mass effect or midline shift. 2. Questionable vasogenic edema in the right frontal lobe and contrast- enhanced CT is recommended in this patient who has a cardiac pacemaker. 3. Nonspecific vague subcentimeter lucencies of the calvarium. Metastatic disease and multiple myeloma would be in the differential. . Abdomen/Pelvis CT 06/22/18 22:00 CONCLUSION: 1. Pericholecystic fluid and probable mild wall thickening of the gallbladder. These findings are nonspecific, potentially related to underlying liver disease. Acute cholecystitis cannot excludable. Please correlate clinically. 2. Enlarged and fatty infiltrated liver. 3. Umbilical hernia containing indurated fat. No bowel herniation. 4. Large pedunculated uterine fibroid unchanged. 5. Cardiomegaly. 6. No obstruction or acute gastrointestinal tract inflammatory changes. Normal appendix. Assessment and Plan - Plan //Syncope/defibrillator discharge/ventricular fibrillation Pacemaker interrogated showed ventricular fibrillation followed by shock and then paced rhythm Currently tachycardic with heart rate in the 90s Cardiology consulted, Dr. Menendez, appreciate recommendations Status post amiodarone and metoprolol in the ed = 06/23. Discussed with cardiology. Appreciate assistance. //Symptomatic anemia. Likely secondary to menorrhagia. Patient has history of fibroids. =Iron studies pending. GI was consulted. // Abnormal head CT Patient with questionable vasogenic edema in the right frontal lobe and nonspecific subcentimeter lucencies of the calvarium. Metastatic disease and multiple myeloma are in the differential. Neurology consulted, appreciate assistance Contrast CT head pending (patient cannot have MRI secondary to AICD) = Consult oncology due to possible multiple myeloma. //Cardiomyopathy Continue Entresto Continue beta chandni = Cardiology following. Follow-up recommendations. //Hypertension Continue home carvedilol //Hypokalemia Potassium 3.1 Aggressive repletion with p.o. and IV potassium Monitor BMP = Resolved after placement. FEN Heart healthy diet Electrolytes: As above Discharge Planning: Pending clearance by neurology, cardiology, oncology
--- NOTE | 2018-06-23 13:31 | P.CONGI ---
History of Present Illness Consult date: 06/23/18 Consult reason: Anemia Chief complaint: V-fib, AICD Firing History of Present Illness: This is a 43 yo F with PMH significant for cardiomyopathy and CHF with AICD that was placed by Dr. Rome in 2015, who was brought to the hospital by EMS after she became unresponsive while shopping in [employer]. Interrogation of [employer] pacemaker revealed ventricular fibrillation S/P defibrillation, pt currently admitted to cardiac intermediate care unit at [place]. Pt reports that all day yesterday she had an upset stomach and that she tried drinking some white liquid from [employer] with mild relief. Discomfort located in her upper mid abdomen, states has been intermittent for a long time. Thinks when her defibrillator fired in May 2017 that she was also having upset stomach at that time. Pt pending cardiology consult. Our service has been consulted to evaluate pt for anemia. Pt reports history of anemia, takes iron and folic acid supplements. States she thinks she has family history of anemia, but denies known sickle cell or sickle cell trait. Reports heavy menstrual cycles, normally lasts 5 days, last cycle was on June 12 but states only lasted for 2 days. Pt currently denies nausea, vomiting. States bowel movements have been regular, denies hematochezia and melena. Does report 3 months of diarrhea beginning in November, stool studies negative in January for enteric pathogens. Has never had EGD or colonoscopy. Pt was seen by Dr. Adame on Nov 15 2015 at [facility], noted be anemic with Hemoccult positive stools, she was planned for inpatient AICD placement so GI work up was advised on outpatient basis. According to chart pt had similar complaints regard mid upper abdominal pain at that time. <Mami Zuñiga - Last Filed: 06/23/18 12:53> Review of Systems Gastrointestinal: Reports abdominal pain, Reports heartburn, Denies black, tarry stools, Denies bright, red blood in stools, Denies change in stools, Denies nausea, Denies vomiting Genitourinary: Reports heavy periods <Mami Zuñiga - Last Filed: 06/23/18 12:53> PMFSH - History History Provided By: Patient - Medical History Medical History: Medical History (Last Updated 06/22/18 @ 23:20 by Laura Mendez MD) Cardiomyopathy HTN (hypertension) History of pulmonary embolism Myocardial infarct - Surgical History Surgical History: Surgical History (Last Updated 06/22/18 @ 23:20 by Laura Mendez MD) H/O cardiac catheterization - Family History Family History: Family History (Last Updated 06/22/18 @ 23:21 by Laura Mendez MD) Other Family history normal - Tobacco History Second Hand Smoke Exposure: No Smoking Status: Never smoker - Alcohol History How Often Do You Have a Drink Containing Alcohol: Never - Substance Use History Substance History: No History of Abuse - Travel History Recent Travel in the [facility] Within the Last 8 Weeks: No Recent Travel Out of the Country Within the Last 8 Weeks: No - Immunization History Tetanus Immunization: Unsure Hx Influenza Vaccine This Season: No <Mami Zuñiga - Last Filed: 06/23/18 12:53> - Medical History Medical History: Medical History (Last Updated 06/22/18 @ 23:20 by Laura Mendez MD) Cardiomyopathy HTN (hypertension) History of pulmonary embolism Myocardial infarct - Surgical History Surgical History: Surgical History (Last Updated 06/22/18 @ 23:20 by Laura Mendez MD) H/O cardiac catheterization - Family History Family History: Family History (Last Updated 06/22/18 @ 23:21 by Laura Mendez MD) Other Family history normal <Laine Reynolds - Last Filed: 06/23/18 18:43> Medications and Allergies Active Medications: Active Medications Acetaminophen (Tylenol) 650 mg PO Q4H PRN PRN Reason: Temp > 100.4 Al Hydroxide/Mg Hydroxide (Milk Of Tong Livictor hugo) 30 ml PO Q12H PRN PRN Reason: Mild Constipation Aspirin (Aspirin Chew) 81 mg PO DAILY [facility] Last Admin: 06/23/18 08:09 Dose: 81 mg Bisacodyl (Dulcolax Supp) 10 mg RECTAL DAILY PRN PRN Reason: SEVERE CONSITIPATION Carvedilol (Coreg) 50 mg PO DAILY [facility] Last Admin: 06/23/18 08:08 Dose: 50 mg Furosemide (Lasix Inj) 20 mg IV.PUSH UNSCH X1 PRN PRN Reason: AFTER 1ST UNIT OF BLOOD Stop: 06/24/18 11:59 Heparin Sodium (Porcine) (Heparin Inj) 5,000 units SQ Q12H [facility] Last Admin: 06/23/18 00:30 Dose: 5,000 units Sodium Chloride (Ns Inj) 250 mls @ 15 mls/hr IV.SIG ONCE [facility] Stop: 06/24/18 04:39 Lactulose (Lactulose Liq) 30 ml PO DAILY PRN PRN Reason: SEVERE CONSITIPATION Sacubitril/Valsartan (Entresto 97 Mg/103 Mg) 1 tab PO BID [facility] Sennosides (Senokot) 17.2 mg PO Q12H PRN PRN Reason: Moderate Constipation Temazepam (Restoril) 15 mg PO HS PRN PRN Reason: INSOMNIA <Mami Zuñiga - Last Filed: 06/23/18 12:53> Active Medications: Active Medications Acetaminophen (Tylenol) 650 mg PO Q4H PRN PRN Reason: Temp > 100.4 Al Hydroxide/Mg Hydroxide (Milk Of Magnesia Liq) 30 ml PO Q12H PRN PRN Reason: Mild Constipation Aspirin (Aspirin Chew) 81 mg PO DAILY [facility] Last Admin: 06/23/18 08:09 Dose: 81 mg Bisacodyl (Dulcolax Supp) 10 mg RECTAL DAILY PRN PRN Reason: SEVERE CONSITIPATION Carvedilol (Coreg) 50 mg PO DAILY [facility] Last Admin: 06/23/18 08:08 Dose: 50 mg Furosemide (Lasix Inj) 20 mg IV.PUSH UNSCH X1 PRN PRN Reason: AFTER 1ST UNIT OF BLOOD Stop: 06/24/18 11:59 Heparin Sodium (Porcine) (Heparin Inj) 5,000 units SQ Q12H [facility] Last Admin: 06/23/18 13:45 Dose: 5,000 units Sodium Chloride (Ns Inj) 250 mls @ 15 mls/hr IV.SIG ONCE [facility] Stop: 06/24/18 04:39 Lactulose (Lactulose Liq) 30 ml PO DAILY PRN PRN Reason: SEVERE CONSITIPATION Pantoprazole Sodium (Protonix Inj) 40 mg IV.PUSH Q12H [facility] Last Admin: 06/23/18 14:54 Dose: 40 mg Sacubitril/Valsartan (Entresto 97 Mg/103 Mg) 1 tab PO BID [facility] Sennosides (Senokot) 17.2 mg PO Q12H PRN PRN Reason: Moderate Constipation Temazepam (Restoril) 15 mg PO HS PRN PRN Reason: INSOMNIA <Laine Reynolds - Last Filed: 06/23/18 18:43> Allergies Allergy/AdvReac Type Severity Reaction Status Date / Time Sulfa (Sulfonamide Allergy Severe SHORTNESS Verified 06/22/18 18:22 Antibiotics) OF BREATH Home Medications Medication Instructions Recorded Confirmed Type aspirin 81 mg PO DAILY 06/22/18 06/22/18 History carvedilol [Coreg] 50 mg PO DAILY 06/22/18 06/22/18 History sacubitril-valsartan [Entresto] 1 tab PO BID 06/22/18 06/22/18 History Exam Vital signs: Vital Signs 06/22/18 18:22 06/22/18 19:49 06/23/18 00:32 Temperature 97.6 F Pulse Rate 103 H 107 H 86 Respiratory Rate 16 18 18 Blood Pressure 140/89 154/97 H 144/81 H Pulse Oximetry 96 98 96 06/23/18 04:00 06/23/18 05:00 06/23/18 05:57 Temperature 97.6 F Pulse Rate 84 84 85 Respiratory Rate 16 Blood Pressure 104/65 Pulse Oximetry 98 06/23/18 07:00 06/23/18 08:00 06/23/18 09:00 Temperature 98.0 F Pulse Rate 85 86 85 Respiratory Rate 18 Blood Pressure 113/81 Pulse Oximetry 98 Intake & Output 06/22/18 06/23/18 06/23/18 18:59 06:59 18:59 Intake Total 300 / 300 240 / 240 Output Total 0 / 0 Balance 300 / 300 240 / 240 Weight 123.831 kg 146 kg Intake: IV 300 / 300 KCl 10 mEq Premix Inj 10 meq In 300 / 300 100 ml @ 100 mls/hr IV.SIG Q1H [facility] Rx#:[id number] Oral 0 / 0 240 / 240 Output: Urine 0 / 0 Other: Date of Last Bowel Movement 06/22/18 - Constitutional no acute distress - Routine HEENT Exam Head: Present: normocephalic, atraumatic - Routine Respiratory Exam Absent: accessory muscle use - Routine Abdominal Exam Present: soft, normoactive bowel sounds, hernia. Absent: tenderness Comments: ventral hernia - Routine Skin Exam Present: dry, warm - Routine Neurological Exam Present: alert, oriented X3 <Bonnette,Mami - Last Filed: 06/23/18 12:53> Vital signs: Vital Signs 06/22/18 19:49 06/23/18 00:32 06/23/18 04:00 Temperature 97.6 F Pulse Rate 107 H 86 84 Respiratory Rate 18 18 16 Blood Pressure 154/97 H 144/81 H 104/65 Pulse Oximetry 98 96 98 06/23/18 05:00 06/23/18 05:57 06/23/18 07:00 Temperature Pulse Rate 84 85 85 Respiratory Rate Blood Pressure Pulse Oximetry 06/23/18 08:00 06/23/18 09:00 06/23/18 10:00 Temperature 98.0 F Pulse Rate 86 85 75 Respiratory Rate 18 Blood Pressure 113/81 Pulse Oximetry 98 06/23/18 11:00 06/23/18 12:00 06/23/18 13:00 Temperature 97.7 F Pulse Rate 78 89 86 Respiratory Rate 18 Blood Pressure 103/71 Pulse Oximetry 94 L 06/23/18 14:00 06/23/18 15:00 06/23/18 16:00 Temperature Pulse Rate 86 86 82 Respiratory Rate 18 Blood Pressure 107/64 Pulse Oximetry 99 06/23/18 17:00 06/23/18 18:00 Temperature Pulse Rate 82 82 Respiratory Rate Blood Pressure Pulse Oximetry Intake & Output 06/22/18 06/23/18 06/23/18 18:59 06:59 18:59 Intake Total 300 / 300 240 / 240 Output Total 0 / 0 Balance 300 / 300 240 / 240 Weight 123.831 kg 146 kg Intake: IV 300 / 300 KCl 10 mEq Premix Inj 10 meq In 300 / 300 100 ml @ 100 mls/hr IV.SIG Q1H [facility] Rx#:[id number] Oral 0 / 0 240 / 240 Output: Urine 0 / 0 Other: # Voids 1 Date of Last Bowel Movement 06/22/18 <Laine Reynolds - Last Filed: 06/23/18 18:43> Results - Labs CBC & Chem 7: 06/23/18 06:06 06/23/18 06:06 Labs: Laboratory Results - last 24 hr 06/22/18 06/22/18 06/22/18 18:35 18:35 18:35 WBC 7.7 RBC 3.98 L Hgb 8.1 L Hct 26.4 L MCV 66.3 L MCH 20.2 L MCHC 30.5 L RDW 17.2 Plt Count 368 MPV 8.0 Neut % (Auto) 65.0 Lymph % (Auto) 25.6 [place] % (Auto) 7.5 Eos % (Auto) 1.3 Baso % (Auto) 0.6 Neut # (Auto) 5.0 Lymph # (Auto) 2.0 [place] # (Auto) 0.6 Eos # (Auto) 0.1 Baso # (Auto) 0.0 WBC Differential . Differential Comment Auto diff final PT 10.9 INR 1.1 APTT 20.1 L D-Dimer Quant (PE/DVT) 1.15 H Sodium 141 Potassium 3.1 L Chloride 105 Carbon Dioxide 26.6 Anion Gap 9 BUN 15 Creatinine 0.94 Estimated GFR 78 L Random Glucose 102 Calcium 8.9 Magnesium 1.9 Total Bilirubin 0.4 AST 16 ALT 21 Alkaline Phosphatase 77 Total Creatine Kinase 90 Troponin I 0.05 B-Natriuretic Peptide Total Protein 7.4 Albumin 3.3 L Lipase Urine Color Urine Clarity Urine pH Ur Specific [place] Urine Protein Urine Glucose (UA) Urine Ketones Urine Occult Blood Urine Nitrate Urine Bilirubin Urine Urobilinogen Ur Leukocyte Esterase Urine RBC Urine WBC Ur Squamous Epith Cells Urine Bacteria Hyaline Casts Micro UA Comment Urine Culture Comments 06/22/18 06/22/18 06/22/18 18:35 18:35 18:35 WBC RBC Hgb Hct MCV MCH MCHC RDW Plt Count MPV Neut % (Auto) Lymph % (Auto) [place] % (Auto) Eos % (Auto) Baso % (Auto) Neut # (Auto) Lymph # (Auto) [place] # (Auto) Eos # (Auto) Baso # (Auto) WBC Differential Differential Comment PT INR APTT D-Dimer Quant (PE/DVT) Cancelled Sodium Potassium Chloride Carbon Dioxide Anion Gap BUN Creatinine Estimated GFR Random Glucose Calcium Magnesium Total Bilirubin AST ALT Alkaline Phosphatase Total Creatine Kinase Troponin I B-Natriuretic Peptide 698 H Total Protein Albumin Lipase 126 Urine Color Urine Clarity Urine pH Ur Specific [place] Urine Protein Urine Glucose (UA) Urine Ketones Urine Occult Blood Urine Nitrate Urine Bilirubin Urine Urobilinogen Ur Leukocyte Esterase Urine RBC Urine WBC Ur Squamous Epith Cells Urine Bacteria Hyaline Casts Micro UA Comment Urine Culture Comments 06/22/18 06/23/18 06/23/18 20:50 06:06 06:06 WBC 6.5 RBC 3.78 L Hgb 7.6 L Hct 25.2 L MCV 66.5 L MCH 20.1 L MCHC 30.2 L RDW 16.6 Plt Count 333 MPV 7.7 Neut % (Auto) 70.6 H Lymph % (Auto) 20.1 [place] % (Auto) 7.4 Eos % (Auto) 1.1 Baso % (Auto) 0.8 Neut # (Auto) 4.6 Lymph # (Auto) 1.3 [place] # (Auto) 0.5 Eos # (Auto) 0.1 Baso # (Auto) 0.1 WBC Differential . Differential Comment Auto diff final PT INR APTT D-Dimer Quant (PE/DVT) Sodium 141 Potassium 4.0 D Chloride 107 Carbon Dioxide 27.3 Anion Gap 7 BUN 13 Creatinine 0.79 Estimated GFR Greater than 89 Random Glucose 105 Calcium 9.0 Magnesium Total Bilirubin AST ALT Alkaline Phosphatase Total Creatine Kinase Troponin I B-Natriuretic Peptide Total Protein Albumin Lipase Urine Color Yellow Urine Clarity Hazy H Urine pH 6.0 Ur Specific [place] 1.013 Urine Protein 100 H Urine Glucose (UA) Negative Urine Ketones Negative Urine Occult Blood Negative Urine Nitrate Negative Urine Bilirubin Negative Urine Urobilinogen Less than 2 Ur Leukocyte Esterase Negative Urine RBC 1 Urine WBC 4 Ur Squamous Epith Cells 1 Urine Bacteria Rare H Hyaline Casts 4 Micro UA Comment Culture not ind Urine Culture Comments Culture not ind - Imaging Impressions Chest X-Ray 06/22/18 18:31 CONCLUSION: Moderate cardiomegaly without perceptible failure or acute pneumonia. Head CT 06/22/18 19:09 CONCLUSION: 1. No bleed, mass effect or midline shift. 2. Questionable vasogenic edema in the right frontal lobe and contrast- enhanced CT is recommended in this patient who has a cardiac pacemaker. 3. Nonspecific vague subcentimeter lucencies of the calvarium. Metastatic disease and multiple myeloma would be in the differential. . Abdomen/Pelvis CT 06/22/18 22:00 CONCLUSION: 1. Pericholecystic fluid and probable mild wall thickening of the gallbladder. These findings are nonspecific, potentially related to underlying liver disease. Acute cholecystitis cannot excludable. Please correlate clinically. 2. Enlarged and fatty infiltrated liver. 3. Umbilical hernia containing indurated fat. No bowel herniation. 4. Large pedunculated uterine fibroid unchanged. 5. Cardiomegaly. 6. No obstruction or acute gastrointestinal tract inflammatory changes. Normal appendix. <Mami Zuñiga - Last Filed: 06/23/18 12:53> - Labs CBC & Chem 7: 06/23/18 06:06 06/23/18 06:06 Labs: Laboratory Results - last 24 hr 06/22/18 06/22/18 06/22/18 18:35 18:35 18:35 WBC 7.7 RBC 3.98 L Hgb 8.1 L Hct 26.4 L MCV 66.3 L MCH 20.2 L MCHC 30.5 L RDW 17.2 Plt Count 368 MPV 8.0 Neut % (Auto) 65.0 Lymph % (Auto) 25.6 [place] % (Auto) 7.5 Eos % (Auto) 1.3 Baso % (Auto) 0.6 Neut # (Auto) 5.0 Lymph # (Auto) 2.0 [place] # (Auto) 0.6 Eos # (Auto) 0.1 Baso # (Auto) 0.0 WBC Differential . Differential Comment Auto diff final PT 10.9 INR 1.1 APTT 20.1 L D-Dimer Quant (PE/DVT) 1.15 H Sodium 141 Potassium 3.1 L Chloride 105 Carbon Dioxide 26.6 Anion Gap 9 BUN 15 Creatinine 0.94 Estimated GFR 78 L Random Glucose 102 Calcium 8.9 Magnesium 1.9 Iron TIBC % Saturation Ferritin Total Bilirubin 0.4 AST 16 ALT 21 Alkaline Phosphatase 77 Total Creatine Kinase 90 Troponin I 0.05 B-Natriuretic Peptide Total Protein 7.4 Albumin 3.3 L Lipase Urine Color Urine Clarity Urine pH Ur Specific [place] Urine Protein Urine Glucose (UA) Urine Ketones Urine Occult Blood Urine Nitrate Urine Bilirubin Urine Urobilinogen Ur Leukocyte Esterase Urine RBC Urine WBC Ur Squamous Epith Cells Urine Bacteria Hyaline Casts Micro UA Comment Urine Culture Comments Blood Type Antibody Screen MTS Gel Crossmatch 06/22/18 06/22/18 06/22/18 18:35 18:35 18:35 WBC RBC Hgb Hct MCV MCH MCHC RDW Plt Count MPV Neut % (Auto) Lymph % (Auto) [place] % (Auto) Eos % (Auto) Baso % (Auto) Neut # (Auto) Lymph # (Auto) [place] # (Auto) Eos # (Auto) Baso # (Auto) WBC Differential Differential Comment PT INR APTT D-Dimer Quant (PE/DVT) Cancelled Sodium Potassium Chloride Carbon Dioxide Anion Gap BUN Creatinine Estimated GFR Random Glucose Calcium Magnesium Iron TIBC % Saturation Ferritin Total Bilirubin AST ALT Alkaline Phosphatase Total Creatine Kinase Troponin I B-Natriuretic Peptide 698 H Total Protein Albumin Lipase 126 Urine Color Urine Clarity Urine pH Ur Specific [place] Urine Protein Urine Glucose (UA) Urine Ketones Urine Occult Blood Urine Nitrate Urine Bilirubin Urine Urobilinogen Ur Leukocyte Esterase Urine RBC Urine WBC Ur Squamous Epith Cells Urine Bacteria Hyaline Casts Micro UA Comment Urine Culture Comments Blood Type Antibody Screen MTS Gel Crossmatch 06/22/18 06/23/18 06/23/18 20:50 06:06 06:06 WBC 6.5 RBC 3.78 L Hgb 7.6 L Hct 25.2 L MCV 66.5 L MCH 20.1 L MCHC 30.2 L RDW 16.6 Plt Count 333 MPV 7.7 Neut % (Auto) 70.6 H Lymph % (Auto) 20.1 [place] % (Auto) 7.4 Eos % (Auto) 1.1 Baso % (Auto) 0.8 Neut # (Auto) 4.6 Lymph # (Auto) 1.3 [place] # (Auto) 0.5 Eos # (Auto) 0.1 Baso # (Auto) 0.1 WBC Differential . Differential Comment Auto diff final PT INR APTT D-Dimer Quant (PE/DVT) Sodium 141 Potassium 4.0 D Chloride 107 Carbon Dioxide 27.3 Anion Gap 7 BUN 13 Creatinine 0.79 Estimated GFR Greater than 89 Random Glucose 105 Calcium 9.0 Magnesium Iron TIBC % Saturation Ferritin Total Bilirubin AST ALT Alkaline Phosphatase Total Creatine Kinase Troponin I B-Natriuretic Peptide Total Protein Albumin Lipase Urine Color Yellow Urine Clarity Hazy H Urine pH 6.0 Ur Specific [place] 1.013 Urine Protein 100 H Urine Glucose (UA) Negative Urine Ketones Negative Urine Occult Blood Negative Urine Nitrate Negative Urine Bilirubin Negative Urine Urobilinogen Less than 2 Ur Leukocyte Esterase Negative Urine RBC 1 Urine WBC 4 Ur Squamous Epith Cells 1 Urine Bacteria Rare H Hyaline Casts 4 Micro UA Comment Culture not ind Urine Culture Comments Culture not ind Blood Type Antibody Screen MTS Gel Crossmatch 06/23/18 06/23/18 14:22 14:23 WBC RBC Hgb Hct MCV MCH MCHC RDW Plt Count MPV Neut % (Auto) Lymph % (Auto) [place] % (Auto) Eos % (Auto) Baso % (Auto) Neut # (Auto) Lymph # (Auto) [place] # (Auto) Eos # (Auto) Baso # (Auto) WBC Differential Differential Comment PT INR APTT D-Dimer Quant (PE/DVT) Sodium Potassium Chloride Carbon Dioxide Anion Gap BUN Creatinine Estimated GFR Random Glucose Calcium Magnesium Iron 17 L TIBC 515 H % Saturation 3.3 L Ferritin 4 L Total Bilirubin AST ALT Alkaline Phosphatase Total Creatine Kinase Troponin I B-Natriuretic Peptide Total Protein Albumin Lipase Urine Color Urine Clarity Urine pH Ur Specific [place] Urine Protein Urine Glucose (UA) Urine Ketones Urine Occult Blood Urine Nitrate Urine Bilirubin Urine Urobilinogen Ur Leukocyte Esterase Urine RBC Urine WBC Ur Squamous Epith Cells Urine Bacteria Hyaline Casts Micro UA Comment Urine Culture Comments Blood Type A Positive Antibody Screen Negative MTS Gel Crossmatch See Detail - Imaging Impressions Chest X-Ray 06/22/18 18:31 CONCLUSION: Moderate cardiomegaly without perceptible failure or acute pneumonia. Head CT 06/22/18 19:09 CONCLUSION: 1. No bleed, mass effect or midline shift. 2. Questionable vasogenic edema in the right frontal lobe and contrast- enhanced CT is recommended in this patient who has a cardiac pacemaker. 3. Nonspecific vague subcentimeter lucencies of the calvarium. Metastatic disease and multiple myeloma would be in the differential. . Abdomen/Pelvis CT 06/22/18 22:00 CONCLUSION: 1. Pericholecystic fluid and probable mild wall thickening of the gallbladder. These findings are nonspecific, potentially related to underlying liver disease. Acute cholecystitis cannot excludable. Please correlate clinically. 2. Enlarged and fatty infiltrated liver. 3. Umbilical hernia containing indurated fat. No bowel herniation. 4. Large pedunculated uterine fibroid unchanged. 5. Cardiomegaly. 6. No obstruction or acute gastrointestinal tract inflammatory changes. Normal appendix. <Laine Reynolds - Last Filed: 06/23/18 18:43> Assessment and Plan - Plan Assessment: - Anemia- microcytic, hypochromic with known iron deficiency- pt takes iron and folic acid supplements. States family history of anemia but denies any known sickle cell or sickle cell trait. Pt was seen by GI Dr. Adame at [facility] in Nov 2015, was noted to be anemic at that time , advised to have outpatient GI work up including EGD and colonoscopy due to placement of AICD by Dr. Rome during that admission. Pt did not follow up in the office. Denies nausea, vomiting, hematochezia, and melena. Of note, pt reports heavy menstrual cycles that normally last 5 days, last cycle on June 12 but states only lasted two days CT abdomen and pelvis W IV contrast --> Pericholecystic fluid and probable mild wall thickening of the gallbladder. These findings are nonspecific, potentially related to underlying liver disease. Acute cholecystitis cannot excludable. Please correlate clinically. Enlarged and fatty infiltrated liver. Umbilical hernia containing indurated fat. No bowel herniation. Large pedunculated uterine fibroid unchanged. Cardiomegaly. No obstruction or acute gastrointestinal tract inflammatory changes. Normal appendix Of note, head CT concerning for metastatic disease and multiple myeloma would be in the differential - Abdominal pain- mid upper abdomen, described as burning and discomfort- has tried a white liquid and Prilosec at home. States was very bad yesterday all day, thinks she had this before when her AICD fired in May 2017 - Cardiomyopathy, CHF- Became unresponsive at [employer] yesterday, [employer] AICD interrogated revealing V-fib S/P defibrillation- pending cardiology consult Plan: Oncology/hematology consult pending Cardiology consult pending No plan for scopes at this time- not stable- will need clearance Protonix Will continue to follow Pt has been seen and examined by myself and Dr. Reynolds and this note is written on her behalf <Mami Zuñiga - Last Filed: 06/23/18 12:53> - Attending Attestation seen, examined agree with above egd/colon once cleared by cardiology chief projectionist eval can be done op <Laine Reynolds - Last Filed: 06/23/18 18:43>
--- NOTE | 2018-06-23 14:36 | MB ---
cc: Tree Youssef MD DATE: 06/23/2018 HISTORY OF PRESENT ILLNESS: Bakari is a very pleasant 43-year-old lady with history of cardiomyopathy, pulmonary embolism, hypertension, myocardial infarction. She had a syncopal event with no prodrome yesterday. Otherwise, denies any fever, chills, cough, GI or bleeding, PND or orthopnea. PAST MEDICAL HISTORY: As per history of present illness. ALLERGIES: SULFA. SOCIAL HISTORY: Denies tobacco or alcohol use. MEDICATIONS IN THE HOSPITAL: 1. Aspirin 81 mg a day. 2. Coreg 50 mg daily. 3. Furosemide 20 mg IV p.r.n. 4. Heparin 5000 subcutaneous every 12 hours. 5. Pantoprazole 40 mg IV every 12 hours. 6. Entresto 97/103. 7. Restoril. PHYSICAL EXAMINATION: VITAL SIGNS: Blood pressure 113/81, pulse 86, respiratory rate 18, temperature 98.0, sats 98% on room air. GENERAL: She is alert and oriented x 3, in no acute distress. NECK: Supple. No JVD. No bruit. CARDIOVASCULAR: S1, S2. No murmurs, rubs, or gallops. LUNGS: Clear to auscultation bilaterally. ABDOMEN: Soft, nontender, nondistended with positive bowel sounds. EXTREMITIES: No extremity edema. DIAGNOSTIC STUDIES: Chest x-ray on admission: Moderate cardiomegaly without perceptible failure or acute pneumonia. EKG: Sinus tachycardia with a left bundle-branch block, rate of 105 beats per minute. Repeat EKG shows normal sinus rhythm at 75 beats per minute with a PVC. On the initial EKG, the corrected QT interval was [address]: No bleed, mass effect or midline shift. Questionable vasogenic edema in the right frontal lobe and contrast enhanced CT is recommended in this patient who has a cardiac pacemaker. Nonspecific vague subcentimeter lucencies of the calvarium. Metastatic disease and multiple myeloma would be in the differential. Abdominal pelvic CT: Pericholecystic fluid and probable mild wall thickening of the gallbladder. These findings are nonspecific, potentially related to underlying liver disease, "acute cholecystitis not excludable", enlarged fatty infiltrated liver, umbilical hernia containing indurated fat, a large pedunculated uterine fibroid unchanged and cardiomegaly. LABORATORY DATA: White count 6.5, hemoglobin 7.6, hematocrit 25.2, platelet count 333. INR 1.1. Sodium 141, potassium 3.1, chloride 105, bicarbonate 26.6, BUN 15, creatinine 0.94. LFTs normal. BNP 698. Troponin 0.05. DIAGNOSES: 1. Syncope. 2. Coronary artery disease. 3. Cardiomyopathy. 4. Decompensated congestive heart failure. 5. Hypokalemia. 6. Anemia. 7. Elevated neutrophil count. 8. Abnormal head CT with questionable vasogenic edema in the right frontal lobe. 9. Enlarged and fatty infiltrated liver, pedunculated uterine fibroid, cardiomegaly. DISCUSSION: At this point in time, the patient will need a complete neurologic and cardiovascular workup including from a cardiovascular standpoint, continue telemetry monitoring, carotid ultrasound and 2-D echo. I discussed the case at the bedside with Dr. Sullivan and the patient. I also agree with Dr. Sullivan the patient should be transfused given the obvious symptomatic anemia leading to syncope. Recommend neurology to followup as well due to the abnormal head CT and the syncopal event. We will continue to monitor her telemetry findings and hemoglobin trends. MD JASPER Hensley/GIOVANNA , 01:47 PM , 01:57 PM
[2018-06-23] MEDS: Pantoprazole Inj 40 MG Vial IV.PUSH SCH (14:54)
[2018-06-23 14:55] LABS: % Iron Saturation 3.3 % (20-50)
--- NOTE | 2018-06-23 17:51 | MB ---
cc: Hermann Ortega MD, PhD DATE: 06/23/2018 REASON FOR CONSULTATION: Abnormal CT brain. HISTORY OF PRESENT ILLNESS: Ms. Johnston is a very pleasant 43-year-old female, who had an episode of loss of consciousness. States her defibrillator did activate. She has a history of cardiomyopathy. Pacemaker was interrogated, showing ventricular fibrillation, followed by defibrillator discharge and then a paced rhythm. She had a CT of the brain, which reveals evidence of vasogenic edema in the right frontal lobe. No headaches. Denies focal neurologic deficits. NEUROLOGIC EXAMINATION: VITAL SIGNS: Blood pressure is 107/64, pulse 82, respiratory rate is 18. NEUROLOGIC: Higher cortical functions normal. Cranial nerves are intact. Motor exam: No focal deficits. Normal strength and tone of all groups. Reflexes symmetric. IMAGING STUDIES: CT of the brain is evaluated. There is an area of low density in the right frontal lobe of questionable significance. This is a noncontrast study. LABORATORY DATA: White count 7700, hemoglobin 8.1, hematocrit 26.4%, platelet count 368,000. PT 10.9, INR 1.1, aPTT 20.1. Sodium is 141, potassium 3.1, chloride 105, CO2 of 26.6, BUN 15, creatinine 0.94, GFR 78, glucose 102, calcium 8.9. IMPRESSION AND PLAN: An area of low density in the right frontal lobe. Recommend a CT brain with contrast to rule out mass or tumor. The patient is not able to have an MRI because of the pacemaker defibrillator. Hermann Ortega MD, PhD ANTONIO/yair/sixto , 05:32 PM , 05:37 PM
[2018-06-24] MEDS: Heparin - SQ 10,000 UNITS/ML Vial SQ SCH ×2 (00:03→12:16)
[2018-06-24] MEDS: Pantoprazole Inj 40 MG Vial IV.PUSH SCH ×2 (02:07→14:38)
--- NOTE | 2018-06-24 05:48 | CT ---
EXAM DATE: 06/24/2018 5:35 AM EDT AGE/SEX: 43 years / Female INDICATIONS: Syncopal episode yesterday. Evaluate possible vasogenic edema seen on prior head scan. CLINICAL DATA: This is the patient's initial encounter. Patient reports that signs and symptoms have been present for 2 days and indicates a pain score of 0/10. MEDICAL/SURGICAL HISTORY: Cardiovascular disease. Myocardial infarction. PE. Defibrillator. RADIATION DOSE: 38.27 CTDI (mGy) COMPARISON: [facility] [place] W/O CONTRAST, 06/22/2018. . TECHNIQUE: CT of the head after intravenous administration of 75 ml Omnipaque 350 (iohexol) nonioni c water-soluble contrast as a single exam dose. Using automated exposure control and adjustment of t he mA and/or kV according to patient size, radiation dose was kept as low as reasonably achievable to obtain optimal diagnostic quality images. DICOM format image data is available electronically for r eview and comparison. FINDINGS: Cerebrum: The ventricles are normal. No midline shift, mass lesion, hemorrhage or acute infarction. No extraaxial fluid collections are seen. Posterior Fossa: The cerebellum and brainstem demonstrate no acute abnormality. The 4th ventricle is midline. The cerebellopontine angle is within normal limits. Extracranial: The visualized sinuses are clear. Skull: No fracture is identified. There are 2 stable subtle lucencies in the frontal bone. Post contrast: No abnormal enhancement is identified. CONCLUSION: 1. No acute intracranial abnormality is identified. There is no abnormal enhancement identified. No definite edema is visualized. 2. Stable subtle areas of lucency within the frontal bone. Electronically signed by: Vic Garsia MD 06/24/2018 5:46 AM EDT
[2018-06-24] MEDS: Carvedilol 12.5 MG Tablet PO SCH (08:15)
--- NOTE | 2018-06-24 11:55 | P.PNGI ---
Subjective Interval history: Patient is awake resting in the bed, positive for some mild upper abdominal pain and right upper quadrant pain No bowel movement 2 days Hemoglobin pending post transfusion 2 units <RossGenevieve M - Last Filed: 06/24/18 11:50> Physical Exam Vital signs: Vital Signs 06/23/18 12:00 06/23/18 13:00 06/23/18 14:00 Temperature 97.7 F Pulse Rate 89 86 86 Respiratory Rate 18 Blood Pressure 103/71 Pulse Oximetry 94 L 06/23/18 15:00 06/23/18 16:00 06/23/18 17:00 Temperature Pulse Rate 86 82 82 Respiratory Rate 18 Blood Pressure 107/64 Pulse Oximetry 99 06/23/18 18:00 06/23/18 18:46 06/23/18 19:00 Temperature 98.4 F Pulse Rate 82 84 83 Respiratory Rate 18 Blood Pressure 93/55 L Pulse Oximetry 97 06/23/18 19:04 06/23/18 19:36 06/23/18 20:00 Temperature 97.9 F 97.9 F 97.9 F Pulse Rate 81 81 83 Respiratory Rate 19 18 16 Blood Pressure 144/90 H 115/72 115/72 Pulse Oximetry 97 100 98 06/23/18 20:31 06/23/18 21:00 06/23/18 21:58 Temperature 98 F 98.4 F Pulse Rate 85 90 86 Respiratory Rate 18 16 Blood Pressure 96/66 L 118/80 Pulse Oximetry 94 L 99 06/23/18 22:00 06/23/18 22:11 06/23/18 22:15 Temperature 97.7 F 98.6 F Pulse Rate 88 90 90 Respiratory Rate 16 16 Blood Pressure 107/78 117/81 Pulse Oximetry 98 100 06/23/18 23:00 06/24/18 00:00 06/24/18 01:00 Temperature 98 F Pulse Rate 82 83 77 Respiratory Rate 16 Blood Pressure 117/81 Pulse Oximetry 98 06/24/18 02:00 06/24/18 02:12 06/24/18 03:00 Temperature 98 F Pulse Rate 76 88 82 Respiratory Rate 16 Blood Pressure 126/86 Pulse Oximetry 06/24/18 04:00 06/24/18 04:58 06/24/18 06:00 Temperature Pulse Rate 78 80 84 Respiratory Rate Blood Pressure Pulse Oximetry 06/24/18 07:00 06/24/18 08:00 06/24/18 09:00 Temperature 97.4 F L Pulse Rate 80 81 77 Respiratory Rate 16 Blood Pressure 119/82 Pulse Oximetry 98 06/24/18 09:45 06/24/18 10:00 06/24/18 11:00 Temperature 97.4 F L Pulse Rate 83 79 Respiratory Rate 17 15 Blood Pressure 94/53 L Pulse Oximetry 96 06/24/18 11:05 Temperature Pulse Rate Respiratory Rate Blood Pressure 96/48 L Pulse Oximetry Intake & Output 06/23/18 06/24/18 06/24/18 18:59 06:59 18:59 Intake Total 240 / 240 1520 / 1520 Balance 240 / 240 1520 / 1520 Weight 148 kg Intake: Oral 240 / 240 720 / 720 Intake (Blood Product) Amt 0 / 0 800 / 800 Rbc As-3 Leukoreduced Unit 400 / 400 [id number] Rbc As-3 Leukoreduced Unit 0 / 0 400 / 400 [id number] Other: # Voids 1 4 Date of Last Bowel Movement 06/23/18 - Constitutional no acute distress (Obese) - Routine HEENT Exam ENT: Present: mucous membranes moist - Routine Respiratory Exam Present: accessory muscle use (Unlabored at rest) - Routine Cardiovascular Exam Present: S1, S2 - Routine Abdominal Exam Present: soft (Round, mild upper abdominal discomfort and right upper quadrant discomfort to light palpation) - Routine Skin Exam Present: intact - Routine Neurological Exam Present: alert (Answer simple questions) <Genevieve Hawkins - Last Filed: 06/24/18 11:50> Vital signs: Vital Signs 06/23/18 18:46 06/23/18 19:00 06/23/18 19:04 Temperature 98.4 F 97.9 F Pulse Rate 84 83 81 Respiratory Rate 18 19 Blood Pressure 93/55 L 144/90 H Pulse Oximetry 97 97 06/23/18 19:36 06/23/18 20:00 06/23/18 20:31 Temperature 97.9 F 97.9 F 98 F Pulse Rate 81 83 85 Respiratory Rate 18 16 18 Blood Pressure 115/72 115/72 96/66 L Pulse Oximetry 100 98 94 L 06/23/18 21:00 06/23/18 21:58 06/23/18 22:00 Temperature 98.4 F Pulse Rate 90 86 88 Respiratory Rate 16 Blood Pressure 118/80 Pulse Oximetry 99 06/23/18 22:11 06/23/18 22:15 06/23/18 23:00 Temperature 97.7 F 98.6 F Pulse Rate 90 90 82 Respiratory Rate 16 16 Blood Pressure 107/78 117/81 Pulse Oximetry 98 100 06/24/18 00:00 06/24/18 01:00 06/24/18 02:00 Temperature 98 F Pulse Rate 83 77 76 Respiratory Rate 16 Blood Pressure 117/81 Pulse Oximetry 98 06/24/18 02:12 06/24/18 03:00 06/24/18 04:00 Temperature 98 F Pulse Rate 88 82 78 Respiratory Rate 16 Blood Pressure 126/86 Pulse Oximetry 06/24/18 04:58 06/24/18 06:00 06/24/18 07:00 Temperature Pulse Rate 80 84 80 Respiratory Rate Blood Pressure Pulse Oximetry 06/24/18 08:00 06/24/18 09:00 06/24/18 09:45 Temperature 97.4 F L Pulse Rate 81 77 Respiratory Rate 16 17 Blood Pressure 119/82 Pulse Oximetry 98 06/24/18 10:00 06/24/18 11:00 06/24/18 11:05 Temperature 97.4 F L Pulse Rate 83 79 Respiratory Rate 15 Blood Pressure 94/53 L 96/48 L Pulse Oximetry 96 06/24/18 12:00 06/24/18 13:00 06/24/18 14:00 Temperature Pulse Rate 68 97 H 74 Respiratory Rate Blood Pressure Pulse Oximetry 06/24/18 15:00 06/24/18 16:00 06/24/18 17:00 Temperature Pulse Rate 72 84 82 Respiratory Rate 18 Blood Pressure 103/69 Pulse Oximetry 98 06/24/18 18:00 Temperature Pulse Rate 79 Respiratory Rate Blood Pressure Pulse Oximetry Intake & Output 06/23/18 06/24/18 06/24/18 18:59 06:59 18:59 Intake Total 240 / 240 1520 / 1520 480 / 480 Balance 240 / 240 1520 / 1520 480 / 480 Weight 148 kg Intake: Oral 240 / 240 720 / 720 480 / 480 Intake (Blood Product) Amt 0 / 0 800 / 800 Rbc As-3 Leukoreduced Unit 400 / 400 [id number] Rbc As-3 Leukoreduced Unit 0 / 0 400 / 400 [id number] Other: # Voids 1 4 3 Date of Last Bowel Movement 06/23/18 06/24/18 # Bowel Movements 1 <Laine Reynolds - Last Filed: 06/24/18 18:21> Results - Labs CBC & Chem 7: 06/23/18 06:06 06/23/18 06:06 Laboratory Results - last 24 hr 06/23/18 06/23/18 14:22 14:23 Iron 17 L TIBC 515 H % Saturation 3.3 L Ferritin 4 L Blood Type A Positive Antibody Screen Negative MTS Gel Crossmatch See Detail - Imaging Impressions Head CT 06/24/18 00:00 CONCLUSION: 1. No acute intracranial abnormality is identified. There is no abnormal enhancement identified. No definite edema is visualized. 2. Stable subtle areas of lucency within the frontal bone. <Genevieve Hawkins - Last Filed: 06/24/18 11:50> - Labs CBC & Chem 7: 06/24/18 11:31 06/24/18 11:31 Laboratory Results - last 24 hr 06/23/18 06/24/18 06/24/18 14:23 11:31 11:31 Hgb 9.1 L Sodium 141 Potassium 3.5 Chloride 107 Carbon Dioxide 26.9 Anion Gap 7 BUN 13 Creatinine 0.79 Estimated GFR Greater than 89 Random Glucose 123 H Calcium 9.0 Blood Type A Positive Antibody Screen Negative MTS Gel Crossmatch See Detail - Imaging Impressions Head CT 06/24/18 00:00 CONCLUSION: 1. No acute intracranial abnormality is identified. There is no abnormal enhancement identified. No definite edema is visualized. 2. Stable subtle areas of lucency within the frontal bone. <Laine Reynolds - Last Filed: 06/24/18 18:21> Assessment and Plan - Plan Assessment: - Anemia- microcytic, hypochromic with known iron deficiency- pt takes iron and folic acid supplements. States family history of anemia but denies any known sickle cell or sickle cell trait. Pt was seen by GI Dr. Adame at [facility] in Nov 2015, was noted to be anemic at that time , advised to have outpatient GI work up including EGD and colonoscopy due to placement of AICD by Dr. Rome during that admission. Pt did not follow up in the office. Denies nausea, vomiting, hematochezia, and melena. Of note, pt reports heavy menstrual cycles that normally last 5 days, last cycle on June 12 but states only lasted two days CT abdomen and pelvis W IV contrast --> Pericholecystic fluid and probable mild wall thickening of the gallbladder. These findings are nonspecific, potentially related to underlying liver disease. Acute cholecystitis cannot excludable. Please correlate clinically. Enlarged and fatty infiltrated liver. Umbilical hernia containing indurated fat. No bowel herniation. Large pedunculated uterine fibroid unchanged. Cardiomegaly. No obstruction or acute gastrointestinal tract inflammatory changes. Normal appendix Of note, head CT concerning for metastatic disease and multiple myeloma would be in the differential - Abdominal pain- mid upper abdomen, described as burning and discomfort- has tried a white liquid and Prilosec at home. States was very bad yesterday all day, thinks she had this before when her AICD fired in May 2017 - Cardiomyopathy, CHF- Became unresponsive at [employer] yesterday, [employer] AICD interrogated revealing V-fib S/P defibrillation- pending cardiology consult 06/24/2018 patient is pending hemoglobin after transfusion 2 units in the past 24 hours. Patient does note some right upper quadrant and upper abdominal discomfort dull ache and with light palpation. Patient denies any bowel movement in the past 2 days history of constipation at times. Currently being evaluated per cardiology, discussed with patient the need for EGD colonoscopy once cardiology clearance is given. Plan: Diet per attending Protonix Currently taking ASA 81 daily Bowel regimen, discussed with patient Monitor labs with special attention hemoglobin and transfuse as needed EGD/colonoscopy after cardiac clearance Patient was seen per myself and Dr. 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
[2018-06-24 12:06] LABS: Anion Gap 7 meq/L (5-15); Blood Urea Nitrogen 13 mg/dL (7-18); Carbon Dioxide 26.9 meq/L (21.0-32.0); Chloride 107 meq/L (98-107); Glomerular Filtration Rate Greater Than 89 mL/min (>89); Glucose,Random 123 mg/dL (74-106); Potassium 3.5 meq/L (3.5-5.1); Sodium 141 meq/L (136-145)
--- NOTE | 2018-06-24 12:49 | MB ---
cc: Isaac David MD DATE: 06/24/2018 REASON FOR CONSULTATION: Ventricular fibrillation arrest with successful defibrillation by [employer] ICD. HISTORY OF PRESENT ILLNESS: The patient is a very pleasant 43-year-old woman, well known to me, who has a history of a severe nonischemic cardiomyopathy and placement of a [employer] ICD. The patient tells me that she has been stable on her outpatient cardiomyopathy regimen, but was in [employer] when she passed out. She has no prodrome and no recollection of anything happening, but apparently a toddler saw her hit the ground and alerted her mother who alerted the ambulance. She was brought to the hospital where a [employer] interrogation showed a true VF with successful defibrillation. The patient is currently asymptomatic, denying chest pain, shortness of breath or any residual lightheadedness or dizziness. PAST MEDICAL HISTORY: 1. Severe nonischemic cardiomyopathy with ejection fraction less than 20%. 2. Systolic congestive heart failure. 3. [employer] ICD. CURRENT MEDICATIONS: 1. Coreg 50 mg daily (this will be changed to 25 mg b.i.d. 2. Protonix. 3. Entresto 97/103 b.i.d. ALLERGIES: SULFA. PHYSICAL EXAMINATION: VITAL SIGNS: Afebrile, pulse 83, respiratory rate 15, BP 94/53, saturating 96% on room air. GENERAL: Pleasant, morbidly obese woman in no distress. NECK: No JVD. LUNGS: Clear to auscultation bilaterally. CARDIOVASCULAR: Regular rate and rhythm. No murmurs appreciated. ABDOMEN: Benign. EXTREMITIES: Trace edema bilaterally. LABORATORY DATA: White count 7.7, hematocrit 26.4, platelets 368. Sodium 141, potassium 3.1, down from 4.0, chloride 105, bicarbonate 26.6, BUN 15, creatinine 0.94, glucose 102. BNP slightly elevated at 698. EKG showed sinus tachycardia, left bundle branch block. IMPRESSION: Ventricular fibrillation arrest. The patient had successful defibrillation from her ventricular fibrillation. I am going to change her carvedilol to 25 mg b.i.d. Given her actual syncopal episode, I am going to add amiodarone 200 mg b.i.d. to her regimen as well. I discussed this at length with the patient. I think it is time we start seriously considering cardiac transplantation, given her young age. The patient agrees, but we can talk about this more as an outpatient. Apparently, there has been some confusion regarding her insurance, but she tells me she does have adequate insurance, which will be required to get her properly established in the heart transplant program. From a heart standpoint, she could be discharged home once his new medication is started, but I will be available during her hospitalization should she require any further neurologic workup due to her potential head injury during the syncopal episode. Thank you again for the opportunity to participate in this patient's care. MD ESME Burrows/keara , 11:57 AM , 12:07 PM
[2018-06-24 16:14] VITALS: O2SAT 98
--- NOTE | 2018-06-24 17:36 | P.PNIM ---
Subjective Interval history: She says she is feeling all right. Denies any chest pain or shortness of breath. Denies any lightheadedness or dizziness today. She reports heavy menstrual bleeding, and is almost certain that this is the cause of her anemia. Has noted no melena or bloody stools. Physical Exam Vital signs: Vital Signs 06/23/18 18:00 06/23/18 18:46 06/23/18 19:00 Temperature 98.4 F Pulse Rate 82 84 83 Respiratory Rate 18 Blood Pressure 93/55 L Pulse Oximetry 97 06/23/18 19:04 06/23/18 19:36 06/23/18 20:00 Temperature 97.9 F 97.9 F 97.9 F Pulse Rate 81 81 83 Respiratory Rate 19 18 16 Blood Pressure 144/90 H 115/72 115/72 Pulse Oximetry 97 100 98 06/23/18 20:31 06/23/18 21:00 06/23/18 21:58 Temperature 98 F 98.4 F Pulse Rate 85 90 86 Respiratory Rate 18 16 Blood Pressure 96/66 L 118/80 Pulse Oximetry 94 L 99 06/23/18 22:00 06/23/18 22:11 06/23/18 22:15 Temperature 97.7 F 98.6 F Pulse Rate 88 90 90 Respiratory Rate 16 16 Blood Pressure 107/78 117/81 Pulse Oximetry 98 100 06/23/18 23:00 06/24/18 00:00 06/24/18 01:00 Temperature 98 F Pulse Rate 82 83 77 Respiratory Rate 16 Blood Pressure 117/81 Pulse Oximetry 98 06/24/18 02:00 06/24/18 02:12 06/24/18 03:00 Temperature 98 F Pulse Rate 76 88 82 Respiratory Rate 16 Blood Pressure 126/86 Pulse Oximetry 06/24/18 04:00 06/24/18 04:58 06/24/18 06:00 Temperature Pulse Rate 78 80 84 Respiratory Rate Blood Pressure Pulse Oximetry 06/24/18 07:00 06/24/18 08:00 06/24/18 09:00 Temperature 97.4 F L Pulse Rate 80 81 77 Respiratory Rate 16 Blood Pressure 119/82 Pulse Oximetry 98 06/24/18 09:45 06/24/18 10:00 06/24/18 11:00 Temperature 97.4 F L Pulse Rate 83 79 Respiratory Rate 17 15 Blood Pressure 94/53 L Pulse Oximetry 96 06/24/18 11:05 06/24/18 12:00 06/24/18 13:00 Temperature Pulse Rate 68 97 H Respiratory Rate Blood Pressure 96/48 L Pulse Oximetry 06/24/18 14:00 06/24/18 15:00 06/24/18 16:00 Temperature Pulse Rate 74 72 84 Respiratory Rate 18 Blood Pressure 103/69 Pulse Oximetry 98 06/24/18 17:00 Temperature Pulse Rate 82 Respiratory Rate Blood Pressure Pulse Oximetry Intake & Output 06/23/18 06/24/18 06/24/18 18:59 06:59 18:59 Intake Total 240 / 240 1520 / 1520 480 / 480 Balance 240 / 240 1520 / 1520 480 / 480 Weight 148 kg Intake: Oral 240 / 240 720 / 720 480 / 480 Intake (Blood Product) Amt 0 / 0 800 / 800 Rbc As-3 Leukoreduced Unit 400 / 400 [id number] Rbc As-3 Leukoreduced Unit 0 / 0 400 / 400 [id number] Other: # Voids 1 4 3 Date of Last Bowel Movement 06/23/18 06/24/18 # Bowel Movements 1 Narrative: GENERAL: Patient sitting up in bed. Appears comfortable. Alert and oriented 4. SKIN: Warm and dry. HEAD: Normocephalic. EYES: No scleral icterus. No injection or drainage. NECK: Supple, trachea midline. No JVD. CARDIOVASCULAR: Regular rate and rhythm without murmurs, gallops, or rubs. RESPIRATORY: Breath sounds equal bilaterally. No accessory muscle use. GASTROINTESTINAL: Abdomen soft, non-tender, nondistended. MUSCULOSKELETAL: No cyanosis, or edema. BACK: Nontender without obvious deformity. No CVA tenderness. Results - Labs CBC & Chem 7: 06/24/18 11:31 06/24/18 11:31 Laboratory Results - last 24 hr 06/23/18 06/24/18 06/24/18 14:23 11:31 11:31 Hgb 9.1 L Sodium 141 Potassium 3.5 Chloride 107 Carbon Dioxide 26.9 Anion Gap 7 BUN 13 Creatinine 0.79 Estimated GFR Greater than 89 Random Glucose 123 H Calcium 9.0 Blood Type A Positive Antibody Screen Negative MTS Gel Crossmatch See Detail - Imaging Impressions Head CT 06/24/18 00:00 CONCLUSION: 1. No acute intracranial abnormality is identified. There is no abnormal enhancement identified. No definite edema is visualized. 2. Stable subtle areas of lucency within the frontal bone. Assessment and Plan - Plan //Syncope/defibrillator discharge/ventricular fibrillation Pacemaker interrogated showed ventricular fibrillation followed by shock and then paced rhythm Currently tachycardic with heart rate in the 90s Cardiology consulted, Dr. Menendez, appreciate recommendations Status post amiodarone and metoprolol in the ed = 06/23. Discussed with cardiology. Appreciate assistance. = 06/24. Changes made to Coreg dose, as well as the addition of amiodarone. Appreciate cardiology assistance. Follow with cardiology as outpatient. Syncope likely secondary to anemia from menorrhagia. //Symptomatic anemia. Likely secondary to menorrhagia. Patient has history of fibroids. =Iron studies pending. GI was consulted. // Abnormal head CT Patient with questionable vasogenic edema in the right frontal lobe and nonspecific subcentimeter lucencies of the calvarium. Metastatic disease and multiple myeloma are in the differential. Neurology consulted, appreciate assistance Contrast CT head pending (patient cannot have MRI secondary to AICD) = Consult oncology due to possible multiple myeloma. = 06/24. Discussed with oncology. Appreciate assistance. Will follow up with oncology as outpatient. Possibility of multiple myeloma. Discussed with patient and patient conveys understanding. //Cardiomyopathy Continue Entresto Continue beta chandni = Cardiology following. Adjustments to medications made. Appreciate cardiology assistance. //Elevated d-dimer on admission. -D-dimer 1.15 on admission. This was ordered due to patient's syncope. Patient has no chest pain, and no pleuritic chest pain. Tachycardia has resolved, and symptoms have resolved with treatment of anemia. No clinical signs or symptoms of PE. //Hypertension Continue home carvedilol, which will be adjusted to 25 mg twice daily. //Hypokalemia Potassium 3.1 Aggressive repletion with p.o. and IV potassium Monitor BMP = Resolved after placement. FEN Heart healthy diet Electrolytes: As above Discharge Planning: Discharge home. Follow with consultants.
--- NOTE | 2018-06-24 17:38 | P.PNNEU ---
Subjective Subjective Comments: No acute events reported Active Medications: Active Medications Acetaminophen (Tylenol) 650 mg PO Q4H PRN PRN Reason: Temp > 100.4 Last Admin: 06/24/18 08:13 Dose: 650 mg Al Hydroxide/Mg Hydroxide (Milk Of Magnesia Liq) 30 ml PO Q12H PRN PRN Reason: Mild Constipation Last Admin: 06/24/18 08:18 Dose: 30 ml Amiodarone HCl (Cordarone) 200 mg PO Q12HR [facility] Aspirin (Aspirin Chew) 81 mg PO DAILY [facility] Last Admin: 06/24/18 08:15 Dose: 81 mg Bisacodyl (Dulcolax Supp) 10 mg RECTAL DAILY PRN PRN Reason: SEVERE CONSITIPATION Carvedilol (Coreg) 25 mg PO BID [facility] Heparin Sodium (Porcine) (Heparin Inj) 5,000 units SQ Q12H [facility] Last Admin: 06/24/18 12:16 Dose: 5,000 units Iron Sucrose 200 mg/ Sodium (Chloride) 110 mls @ 110 mls/hr IV.SIG ONCE ONE Stop: 06/24/18 18:23 Lactulose (Lactulose Liq) 30 ml PO DAILY PRN PRN Reason: SEVERE CONSITIPATION Pantoprazole Sodium (Protonix Inj) 40 mg IV.PUSH Q12H [facility] Last Admin: 06/24/18 14:38 Dose: Not Given Sacubitril/Valsartan (Entresto 97 Mg/103 Mg) 1 tab PO BID [facility] Last Admin: 06/24/18 08:15 Dose: 1 tab Sennosides (Senokot) 17.2 mg PO Q12H PRN PRN Reason: Moderate Constipation Temazepam (Restoril) 15 mg PO HS PRN PRN Reason: INSOMNIA Allergies/Adverse Reactions: Allergies Allergy/AdvReac Type Severity Reaction Status Date / Time Sulfa (Sulfonamide Allergy Severe SHORTNESS Verified 06/22/18 18:22 Antibiotics) OF BREATH Physical Exam Vital signs: Vital Signs 06/23/18 18:00 06/23/18 18:46 06/23/18 19:00 Temperature 98.4 F Pulse Rate 82 84 83 Respiratory Rate 18 Blood Pressure 93/55 L Pulse Oximetry 97 06/23/18 19:04 06/23/18 19:36 06/23/18 20:00 Temperature 97.9 F 97.9 F 97.9 F Pulse Rate 81 81 83 Respiratory Rate 19 18 16 Blood Pressure 144/90 H 115/72 115/72 Pulse Oximetry 97 100 98 06/23/18 20:31 06/23/18 21:00 06/23/18 21:58 Temperature 98 F 98.4 F Pulse Rate 85 90 86 Respiratory Rate 18 16 Blood Pressure 96/66 L 118/80 Pulse Oximetry 94 L 99 06/23/18 22:00 06/23/18 22:11 06/23/18 22:15 Temperature 97.7 F 98.6 F Pulse Rate 88 90 90 Respiratory Rate 16 16 Blood Pressure 107/78 117/81 Pulse Oximetry 98 100 06/23/18 23:00 06/24/18 00:00 06/24/18 01:00 Temperature 98 F Pulse Rate 82 83 77 Respiratory Rate 16 Blood Pressure 117/81 Pulse Oximetry 98 06/24/18 02:00 06/24/18 02:12 06/24/18 03:00 Temperature 98 F Pulse Rate 76 88 82 Respiratory Rate 16 Blood Pressure 126/86 Pulse Oximetry 06/24/18 04:00 06/24/18 04:58 06/24/18 06:00 Temperature Pulse Rate 78 80 84 Respiratory Rate Blood Pressure Pulse Oximetry 06/24/18 07:00 06/24/18 08:00 06/24/18 09:00 Temperature 97.4 F L Pulse Rate 80 81 77 Respiratory Rate 16 Blood Pressure 119/82 Pulse Oximetry 98 06/24/18 09:45 06/24/18 10:00 06/24/18 11:00 Temperature 97.4 F L Pulse Rate 83 79 Respiratory Rate 17 15 Blood Pressure 94/53 L Pulse Oximetry 96 06/24/18 11:05 06/24/18 12:00 06/24/18 13:00 Temperature Pulse Rate 68 97 H Respiratory Rate Blood Pressure 96/48 L Pulse Oximetry 06/24/18 14:00 06/24/18 15:00 06/24/18 16:00 Temperature Pulse Rate 74 72 84 Respiratory Rate 18 Blood Pressure 103/69 Pulse Oximetry 98 06/24/18 17:00 Temperature Pulse Rate 82 Respiratory Rate Blood Pressure Pulse Oximetry Intake & Output 06/23/18 06/24/18 06/24/18 18:59 06:59 18:59 Intake Total 240 / 240 1520 / 1520 480 / 480 Balance 240 / 240 1520 / 1520 480 / 480 Weight 148 kg Intake: Oral 240 / 240 720 / 720 480 / 480 Intake (Blood Product) Amt 0 / 0 800 / 800 Rbc As-3 Leukoreduced Unit 400 / 400 [id number] Rbc As-3 Leukoreduced Unit 0 / 0 400 / 400 [id number] Other: # Voids 1 4 3 Date of Last Bowel Movement 06/23/18 06/24/18 # Bowel Movements 1 Objective Laboratory Results - last 24 hr 06/23/18 06/24/18 06/24/18 14:23 11:31 11:31 Hgb 9.1 L Sodium 141 Potassium 3.5 Chloride 107 Carbon Dioxide 26.9 Anion Gap 7 BUN 13 Creatinine 0.79 Estimated GFR Greater than 89 Random Glucose 123 H Calcium 9.0 Blood Type A Positive Antibody Screen Negative MTS Gel Crossmatch See Detail Review/Management - Review/Management Plan: CT brain with contrast shows no abnormal contrast enhancement to indicate tumor. Suspect the initial findings in frontal lobe are nonspecific. Will order SPEP to further evaluate lucencies seen in bone on CT brain to r/o multiple myeloma
--- NOTE | 2018-06-24 17:41 | P.DS ---
Date of admission: 06/22/18 21:55 Primary care physician: No Primary Care Physician Brief History from admission: 43-year-old female with past medical history significant for cardiomyopathy with an ejection fraction of 10-15%, hypertension and history of previous PE presents to the emergency department after a syncopal episode and [employer]. Patient reports she was shopping at [employer] when she felt hot and "funny". She then states that she has no memory of what happened next and awoke on the floor with a crowd of people around her. She reports that 1 of the other shoppers found her unconscious on the ground in the [place] [employer]. Her pacemaker was interrogated and she had V. fib followed by defibrillator discharge and paced rhythm. She denies ever having any chest pain or shortness of breath. She did not feel that shock. No palpitations. No abdominal pain. No nausea/vomiting/ diarrhea. No fever/chills. DS: Medications - Discharge Medications Prescriptions: carvedilol [Coreg] 25 mg PO BID #30 tab DS: Summary Hospital Course: Cardiology was consulted and has adjusted medications, with the addition of amiodarone. Patient was found to be anemic with hemoglobin down to 7.6. She reports menorrhagia, the most recent episode of which has resolved. Patient received 2 units of PRBCs with resolution of lightheadedness. GI was consulted , however patient's anemia is obviously secondary to menorrhagia. Close follow- up with cardiology as outpatient. Patient will receive IV iron infusion, will be started on p.o. iron. Patient was also found to have lucencies in the skull on CT head. Hematology was consulted, and patient will follow up with hematology as outpatient. For problem based summary from most recent progress note, please see below. //Syncope/defibrillator discharge/ventricular fibrillation Pacemaker interrogated showed ventricular fibrillation followed by shock and then paced rhythm Currently tachycardic with heart rate in the 90s Cardiology consulted, Dr. Menendez, appreciate recommendations Status post amiodarone and metoprolol in the ed = 06/23. Discussed with cardiology. Appreciate assistance. = 06/24. Changes made to Coreg dose, as well as the addition of amiodarone. Appreciate cardiology assistance. Follow with cardiology as outpatient. Syncope likely secondary to anemia from menorrhagia. //Symptomatic anemia. Likely secondary to menorrhagia. Patient has history of fibroids. =Iron studies pending. GI was consulted. // Abnormal head CT Patient with questionable vasogenic edema in the right frontal lobe and nonspecific subcentimeter lucencies of the calvarium. Metastatic disease and multiple myeloma are in the differential. Neurology consulted, appreciate assistance Contrast CT head pending (patient cannot have MRI secondary to AICD) = Consult oncology due to possible multiple myeloma. = 06/24. Discussed with oncology. Appreciate assistance. Will follow up with oncology as outpatient. Possibility of multiple myeloma. Discussed with patient and patient conveys understanding. //Cardiomyopathy Continue Entresto Continue beta chandni = Cardiology following. Adjustments to medications made. Appreciate cardiology assistance. //Elevated d-dimer on admission. -D-dimer 1.15 on admission. This was ordered due to patient's syncope. Patient has no chest pain, and no pleuritic chest pain. Tachycardia has resolved, and symptoms have resolved with treatment of anemia. No clinical signs or symptoms of PE. //Hypertension Continue home carvedilol, which will be adjusted to 25 mg twice daily. //Hypokalemia Potassium 3.1 Aggressive repletion with p.o. and IV potassium Monitor BMP = Resolved after placement. FEN Heart healthy diet Electrolytes: As above - Time Spent with Patient Total time spent providing and/or coordinating discharge services: Greater than 30 minutes - Quality: VTE Deep Vein Thrombosis/Pulmonary Embolism Present on Admission: No Exam Vital signs: Vital Signs 06/23/18 18:00 06/23/18 18:46 06/23/18 19:00 Temperature 98.4 F Pulse Rate 82 84 83 Respiratory Rate 18 Blood Pressure 93/55 L Pulse Oximetry 97 06/23/18 19:04 06/23/18 19:36 06/23/18 20:00 Temperature 97.9 F 97.9 F 97.9 F Pulse Rate 81 81 83 Respiratory Rate 19 18 16 Blood Pressure 144/90 H 115/72 115/72 Pulse Oximetry 97 100 98 06/23/18 20:31 06/23/18 21:00 06/23/18 21:58 Temperature 98 F 98.4 F Pulse Rate 85 90 86 Respiratory Rate 18 16 Blood Pressure 96/66 L 118/80 Pulse Oximetry 94 L 99 06/23/18 22:00 06/23/18 22:11 06/23/18 22:15 Temperature 97.7 F 98.6 F Pulse Rate 88 90 90 Respiratory Rate 16 16 Blood Pressure 107/78 117/81 Pulse Oximetry 98 100 06/23/18 23:00 06/24/18 00:00 06/24/18 01:00 Temperature 98 F Pulse Rate 82 83 77 Respiratory Rate 16 Blood Pressure 117/81 Pulse Oximetry 98 06/24/18 02:00 06/24/18 02:12 06/24/18 03:00 Temperature 98 F Pulse Rate 76 88 82 Respiratory Rate 16 Blood Pressure 126/86 Pulse Oximetry 06/24/18 04:00 06/24/18 04:58 06/24/18 06:00 Temperature Pulse Rate 78 80 84 Respiratory Rate Blood Pressure Pulse Oximetry 06/24/18 07:00 06/24/18 08:00 06/24/18 09:00 Temperature 97.4 F L Pulse Rate 80 81 77 Respiratory Rate 16 Blood Pressure 119/82 Pulse Oximetry 98 06/24/18 09:45 06/24/18 10:00 06/24/18 11:00 Temperature 97.4 F L Pulse Rate 83 79 Respiratory Rate 17 15 Blood Pressure 94/53 L Pulse Oximetry 96 06/24/18 11:05 06/24/18 12:00 06/24/18 13:00 Temperature Pulse Rate 68 97 H Respiratory Rate Blood Pressure 96/48 L Pulse Oximetry 06/24/18 14:00 06/24/18 15:00 06/24/18 16:00 Temperature Pulse Rate 74 72 84 Respiratory Rate 18 Blood Pressure 103/69 Pulse Oximetry 98 06/24/18 17:00 Temperature Pulse Rate 82 Respiratory Rate Blood Pressure Pulse Oximetry Intake & Output 06/23/18 06/24/18 06/24/18 18:59 06:59 18:59 Intake Total 240 / 240 1520 / 1520 480 / 480 Balance 240 / 240 1520 / 1520 480 / 480 Weight 148 kg Intake: Oral 240 / 240 720 / 720 480 / 480 Intake (Blood Product) Amt 0 / 0 800 / 800 Rbc As-3 Leukoreduced Unit 400 / 400 [id number] Rbc As-3 Leukoreduced Unit 0 / 0 400 / 400 [id number] Other: # Voids 1 4 3 Date of Last Bowel Movement 06/23/18 06/24/18 # Bowel Movements 1 Results Procedures completed during hospitalization: No invasive procedures. Labs on day of discharge: Labs from last 24 hours 06/24/18 06/24/18 06/23/18 11:31 11:31 14:23 Hgb 9.1 L Sodium 141 Potassium 3.5 Chloride 107 Carbon Dioxide 26.9 Anion Gap 7 BUN 13 Creatinine 0.79 Estimated GFR Greater than 89 Random Glucose 123 H Calcium 9.0 Blood Type A Positive Antibody Screen Negative MTS Gel Crossmatch See Detail - Impressions ITS Impressions Chest X-Ray 06/22/18 18:31 CONCLUSION: Moderate cardiomegaly without perceptible failure or acute pneumonia. Abdomen/Pelvis CT 06/22/18 22:00 CONCLUSION: 1. Pericholecystic fluid and probable mild wall thickening of the gallbladder. These findings are nonspecific, potentially related to underlying liver disease. Acute cholecystitis cannot excludable. Please correlate clinically. 2. Enlarged and fatty infiltrated liver. 3. Umbilical hernia containing indurated fat. No bowel herniation. 4. Large pedunculated uterine fibroid unchanged. 5. Cardiomegaly. 6. No obstruction or acute gastrointestinal tract inflammatory changes. Normal appendix. Head CT 06/24/18 00:00 CONCLUSION: 1. No acute intracranial abnormality is identified. There is no abnormal enhancement identified. No definite edema is visualized. 2. Stable subtle areas of lucency within the frontal bone. Discharge Plan - Discharge Disposition Patient Disposition: 01 Discharge Home - Discharge Condition Condition: Good - Discharge Order Discharge Orders: Discharge Order (Routine); Ordered 06/24/18 Ordered By: Dimitrios Sullivan - Discharge Details Anticipated Discharge Date: 06/24/18 Discharge Comment: ok to DC home after iron sucrose infusion - Physicians Team Primary Care Provider: Primary Care [place],No Attending Provider: Dimitrios Sullivan Other Providers: Hermann Ortega MD, PhD ; Laine Reynolds MD ; Carlos Chapman MD ; Isaac David MD
--- NOTE | 2018-06-24 18:04 | MB ---
cc: Carlos Chapman MD DATE: 06/24/2018 REASON FOR CONSULTATION: Lucency in the frontal bone of the skull. HISTORY OF PRESENT ILLNESS: This is a 43-year-old female who has a history of cardiomyopathy with a low EF of 10% to 15%. She has an AICD in place. She has a history of hypertension and pulmonary embolism in the past. She had a syncopal episode while she was shopping in a store. EMS was called. Her pacemaker was interrogated and she was found to be in ventricular fibrillation. There was a defibrillator discharge. She was subsequently brought to the emergency room. She was stabilized. Cardiology was consulted. She received amiodarone and has been started on metoprolol. During the course of her hospital admission, a CT head was obtained which revealed nonspecific lucencies within the left frontal bone. There was no acute intracranial abnormality. There was some questionable edema in the right frontal lobe, but this was not seen in the subsequent CT scan. Again, there are subcentimeter lucencies that are vague and are seen in the calvarium. Hematology has been consulted to make further recommendations. This patient has chronic iron deficiency anemia. She has been on oral iron previously. She denies any nosebleeds, gum bleeds, petechiae or bruising. No bright red blood per rectum. She is being evaluated by GI and there are plans for an EGD and colonoscopy. REVIEW OF SYSTEMS: A comprehensive review of systems was completed, which is negative except as per in the HPI. PAST MEDICAL HISTORY: Cardiomyopathy, hypertension, history of pulmonary embolism, myocardial infarction. PAST SURGICAL HISTORY: History of cardiac catheterization, pacemaker placement. FAMILY HISTORY: Reviewed. It is noncontributory to this admission. SOCIAL HISTORY: She does not smoke cigarettes. She does not drink alcohol. No illicit drug use. MEDICATIONS: 1. Tylenol p.r.n. 2. Milk of magnesia p.r.n. 3. Amiodarone 200 mg p.o. q.12 hours. 4. Aspirin 81 mg p.o. daily. 5. Dulcolax 10 mg rectally p.r.n. 6. Carvedilol 25 mg p.o. b.i.d. 7. Heparin subcutaneous q.12 hours. 8. Lactulose 30 mL p.o. daily. 9. Pantoprazole 40 mg IV q.12 hours. 10. Senokot 17.2 mg p.o. q.12 hours. 11. Temazepam 15 mg p.o. at bedtime p.r.n. ALLERGIES: SHE IS ALLERGIC TO SULFA DRUGS. IMAGING STUDIES: Reviewed in the EMR. PHYSICAL EXAMINATION: VITAL SIGNS: Blood pressure is 96/48, pulse is in the 60s, temperature is 97.4, O2 saturations are 96% on room air. GENERAL: In no apparent distress. HEENT: Pupils are equal, round, reactive to light. EOMI. No oral thrush, no lesions. NECK: Supple. No JVD, no bruits, no lymphadenopathy. CHEST: Clear to auscultation bilaterally. CARDIAC: S1, S2. Regular rate and rhythm. ABDOMEN: Soft, nontender, nondistended. Bowel sounds are present. EXTREMITIES: No edema, erythema or cyanosis. SKIN: Without any petechiae, lesions or bruises. NEUROLOGIC: No focal deficits. PSYCHIATRIC: Mood and affect are appropriate. LABORATORY DATA: WBC 6.5, hemoglobin 7.6 and now 9.1, platelet count 333. Serum chemistry: Sodium 141, potassium 3.5, chloride 107, BUN 13, creatinine 0.79. Iron studies show a serum iron of 17, TIBC 559, saturation 3.3, ferritin 4. ASSESSMENT AND PLAN: This is a 43-year-old female with a history of cardiomyopathy with a low ejection fraction of 10% to 15%, history of hypertension and pulmonary embolism, who presents with a syncopal event. She was found to be in ventricular fibrillation and was defibrillated. She is being followed by cardiology. She was found to have an abnormal CT scan of the head. There are nonspecific lucencies in the calvarium, 1. Nonspecific lucencies in the calvarium, more specifically in the frontal bones. These are quite small and the etiology is unclear. Certainly, metastatic disease is a concern. I would recommend obtaining a skeletal survey. We will obtain a monoclonal gammopathy workup including serum protein electrophoresis with serum immunoelectrophoresis. We will also obtain a 24-hour urine protein electrophoresis with uIFE. We will check quantitative immunoglobulins. Further recommendations will be based on the results of the above workup. She can be followed in the outpatient setting and can have additional workup. 2. Severe anemia. She appears to be iron deficient. She will benefit from iron infusions. I will start the iron infusions while she is inpatient. I agree with a gastrointestinal evaluation. 3. Syncopal event with ventricular fibrillation. She is currently being seen by cardiology. She does have a history of severe cardiomyopathy. Thank you for allowing me to participate in the care of this patient. The patient will be seen again on Wednesday. If she is discharged over the weekend, she can follow up in the hematology clinic. MD KYMBERLY Bonds/axel , 03:51 PM , 04:04 PM
[2018-06-24] MEDS ORDERED: Iron Sucrose Inj 200 MG in Sodium Chlor 0.9% Inj 100 ML IV.SIG ONE (19:00)
[2018-06-24] MEDS ORDERED: Amiodarone 200 MG Tablet PO SCH (21:00)
[2018-06-24] MEDS ORDERED: Carvedilol 12.5 MG Tablet PO SCH (21:00)
[2018-06-25 00:20] VITALS: BP 138/68; PULSE 80; RESP 16; TEMP 98.6
[2018-06-26 19:08] LABS: Kappa Lambda Ratio 1.96 (1.57-3.93)
== END 2018-06-24 22:05 | disposition home or self-care (01) ==
LOC: NEPE 18:01 → NEDA 21:55 → HCIS 06-23 03:52
PROVIDERS: ADMIT Internal Medicine; ATTEND Internal Medicine